=== PATIENT | male | born 1945 | race Caucasian/White ===

== ENCOUNTER 2016-09-03 20:50 | Outpatient (CLI) | payer MEDICARE, MEDICAID | END 2016-09-03 20:51 | disposition critical access hospital (66) | LOC: EMS 20:50 | PROVIDERS: ATTEND Surgery | DX: R51 Headache (principal); M54.9 Dorsalgia, unspecified; M54.2 Cervicalgia; M25.522 Pain in left elbow; W18.39XA Other fall on same level, initial encounter; Y93.01 Activity, walking, marching and hiking; Y92.009 Unspecified place in unspecified non-institutional (private) residence as the place of occurrence of the external cause | CPT/HCPCS: A0425; A0429 ==

== ENCOUNTER 2016-09-03 20:59 | Emergency (ER) | payer MEDICARE, MEDICAID ==
[2016-09-03] MEDS ORDERED: TETANUS/DIPHTHERIA/PERTUSSIS 0.5 ML SYRINGE IM ONE ×2 (21:15→21:32)
--- NOTE | 2016-09-03 21:18 | ED Physician Documentation ---
PD HPI HEAD INJURY - Stated complaint Stated Complaint: GLF/HEAD/C-SPINE INJ - Chief complaint Chief Complaint: Trauma Hd/Nk - History obtained from History obtained from: Patient, EMS - History of Present Illness Mechanism of head injury: Other (71-year-old gentleman with history of stroke was on his patio and fell. He is really unable to describe why or how he fell, but he denies any syncope. He hit his head and was unable to get himself up off the ground and crawled into the house sustaining numerous scrapes and abrasions on the concrete from crawling. His main complaint is upper back pain. Tetanus is unknown. He denies loss of consciousness.) Review of Systems Ten Systems: 10 systems reviewed and negative Constitutional: denies: Fever, Chills Eyes: denies: Loss of vision, Decreased vision Cardiac: denies: Chest pain / pressure, Palpitations Respiratory: denies: Dyspnea, Cough PD PAST MEDICAL HISTORY - Past Medical History Past Medical History: Yes Cardiovascular: Hypertension Respiratory: None Neuro: CVA Endocrine/Autoimmune: Type 2 diabetes GI: None : Nocturia HEENT: None Psych: None Musculoskeletal: None Derm: None - Past Surgical History Past Surgical History: Yes - Present Medications Home Medications: Ambulatory Orders Medication Instructions Recorded Confirmed Aspirin/Calcium Carbonate/Mag 325 mg PO DAILY 08/30/14 08/30/14 [Aspirin Buffered 325 mg Tab] FLUoxetine [PROzac] 10 mg PO DAILY 08/30/14 08/30/14 Lisinopril 10 mg PO DAILY 08/30/14 08/30/14 Metformin HCl 500 mg PO BID 08/30/14 08/30/14 [id number] [Cardizem] 90 mg PO DAILY 08/30/14 08/30/14 - Allergies Allergies/Adverse Reactions: Allergies Allergy/AdvReac Type Severity Reaction Status Date / Time No Known Drug Allergies Allergy Verified 08/30/14 10:08 - Social History Does the pt smoke?: No Smoking Status: Never smoker Does the pt drink ETOH?: Yes Does the pt have substance abuse?: No - Immunizations Immunizations are current?: No Immunizations: TDAP >10years/unknown - POLST Patient has POLST: No PD ED PE NORMAL - Vitals Vital signs reviewed: Yes - General General: Alert and oriented X 3, No acute distress - HEENT HEENT: PERRL, EOMI, Other (There is a 1 cm laceration over the right hoahaoism that is hemostatic on initial evaluation.) - Neck Neck: No bony TTP, Other (Given advanced age and potential distracting injury he was maintained in the c-collar pending imaging.) - Cardiac Cardiac: RRR, No murmur - Respiratory Respiratory: No respiratory distress, Clear bilaterally - Abdomen Abdomen: Non tender - Back Back: No CVA TTP, Other (Tender to the low thoracic spine, no lumbar spine tenderness.) - Extremities Extremities: Other (He has multiple abrasions, over the dorsum of the right hand , the medial side of the left hand, over the olecranon. None of these need suturing. There is also abrasion over the medial side of the ball of the right foot and toes. There is no bony tenderness of any extremity and he has full range of motion without pain of all major joints in all extremities.) - Neuro Neuro: Alert and oriented X 3, refund clerk 2-12 intact, No motor deficit, No sensory deficit, Normal speech - Psych Psych: Normal mood, Normal affect Results - Vitals Vitals: Vital Signs - 24 hr 09/03/16 09/03/16 21:00 22:29 Temperature 37 C 36.8 C Heart Rate 79 82 Respiratory 18 21 Rate Blood Pressure 152/95 H 152/81 H O2 Saturation 100 100 Oxygen O2 Source Room air - Labs Labs: Laboratory Tests 09/03/16 09/03/16 09/03/16 21:20 21:20 21:20 WBC 9.6 RBC 5.01 Hgb 15.2 Hct 45.8 MCV 91.5 MCH 30.4 MCHC 33.3 RDW 13.0 Plt Count 193 MPV 9.4 Neut # 7.3 H Lymph # 1.4 L [place] # 0.8 Eos # 0.1 Baso # 0.0 Absolute Nucleated RBC 0.00 Nucleated RBCs 0.0 PT 12.5 INR 1.1 Sodium 140 Potassium 3.9 Chloride 105 Carbon Dioxide 25 Anion Gap 10.0 BUN 25 H Creatinine 1.2 Estimated GFR (MDRD) 60 L Glucose 108 H Calcium 9.4 Total Bilirubin 1.0 AST 15 ALT 11 Alkaline Phosphatase 56 Total Protein 7.6 Albumin 4.4 Globulin 3.2 Albumin/Globulin Ratio 1.4 Lipase 34 - Rads (name of study) Ct Head, C spine and T spine Radiology: EMP read contemporaneously (NAD) Procedures - Laceration (location) R hoahaoism Length in cm: 1 Wound type: Linear, Superficial Wound Preparation: Irrigated copiously NS Skin layer closure: Dermabond Other: Tetanus booster given Complexity: Simple PD MEDICAL DECISION MAKING - ED course ED course: 71yo male after mechanical GLF with multiple abrasions. He has a temporal laceration which was dermabonded. Imaging without significant injury. Pt reuqested dischg. Able to ambulate with walker- that is his baseline. Departure - Departure Disposition: Home, Self Care Clinical Impression: Fall Qualifiers: Encounter type: initial encounter Qualified Code(s): W19.XXXA - Unspecified fall, initial encounter Injury of head and neck Qualifiers: Encounter type: initial encounter Qualified Code(s): S09.90XA - Unspecified injury of head, initial encounter Injury of back Qualifiers: Encounter type: initial encounter Qualified Code(s): S39.92XA - Unspecified injury of lower back, initial encounter Facial laceration Qualifiers: Encounter type: initial encounter Qualified Code(s): S01.81XA - Laceration without foreign body of other part of head, initial encounter Condition: Stable Record reviewed to determine appropriate education?: Yes Instructions: ED Contusion Back, ED Head Injury Closed Comments: You can wash your wounds briefly with soap and water, then keep them dry and covered with a Band-Aid. Follow-up with your doctor in 3 days for wound check. Return if worse. Your blood pressure was elevated today on check into the emergency department. This does not mean that you have hypertension, it is a common phenomenon to come to the emergency department and have elevated blood pressure. I recommend that she see her primary care physician within the week to have it rechecked when you are feeling better. Discharge Date/Time: 09/04/16 00:38
[2016-09-03 21:36] LABS: BASOPHILS % (AUTO) 0.5 %; EOSINOPHILS # (AUTO) 0.1 10^3/uL (0.0-0.7); EOSINOPHILS % (AUTO) 1.5 %; HCT - HEMATOCRIT 45.8 % (42.0-52.0); HGB - HEMOGLOBIN 15.2 g/dL (14.0-18.0); LYMPHOCYTES # (AUTO) 1.4 10^3/uL (1.5-3.5); LYMPHOCYTES % (AUTO) 14.8 %; MEAN CORPUSCULAR HEMOGLOBIN 30.4 pg (27.0-31.0); MEAN CORPUSCULAR HGB CONC 33.3 g/dL (32.0-36.0); MEAN CORPUSCULAR VOLUME 91.5 fL (80.0-94.0); MEAN PLATELET VOLUME 9.4 fL (7.4-11.4); MONOCYTES # (AUTO) 0.8 10^3/uL (0.0-1.0); MONOCYTES % (AUTO) 7.8 %; NEUTROPHILS # (AUTO) 7.3 10^3/uL (1.5-6.6); NEUTROPHILS % (AUTO) 75.4 %; RED BLOOD COUNT 5.01 10^6/uL (4.70-6.10); UNCORRECTED WHITE BLOOD COUNT 9.6 x10^3/uL; WHITE BLOOD COUNT 9.6 x10^3/uL (4.8-10.8)
[2016-09-03 21:43] LABS: ALBUMIN/GLOBULIN RATIO 1.4 (1.0-2.2); CALCIUM 9.4 mg/dL (8.5-10.3); CREATININE 1.2 mg/dL (0.6-1.2); POTASSIUM 3.9 mmol/L (3.5-5.0); TOTAL PROTEIN 7.6 g/dL (6.7-8.2)
[2016-09-03 21:48] LABS: INR 1.1 (0.8-1.2); PT - PROTHROMBIN TIME 12.5 secs (9.9-12.6)
--- NOTE | 2016-09-03 22:24 | CT Preliminary Report ---
Exam: CT Head W/O IMPRESSION: Multiple old lacunar infarcts. No acute intracranial process identified. [facility] SITE ID: [id number]
--- NOTE | 2016-09-03 22:27 | CT Report ---
EXAM: CT HEAD EXAM DATE: 09/03/2016 10:02 PM. CLINICAL HISTORY: Fall with head injury COMPARISON: MR brain 08/31/2014, head CT 08/30/2014. TECHNIQUE: Multiaxial CT images were obtained from the foramen magnum to the vertex. IV contrast: Non e. Reformats: Coronal. In accordance with CT protocol optimization, one or more of the following dose reduction techniques w ere utilized for this exam: automated exposure control, adjustment of mA and/or KV based on patient s ize, or use of iterative reconstructive technique. FINDINGS: Multiple old lacunar infarcts are present within the thalami, basal ganglia and teddy. No space-occupying lesion, hemorrhage, extracerebral fluid collection or hydrocephalus. No CT evidenc e of recent cortical infarct. Skull base and bone windows are unremarkable. IMPRESSION: Multiple old lacunar infarcts. No acute intracranial process identified. [facility] Referring Provider Line: [phone] SITE ID: [id number]
--- NOTE | 2016-09-03 22:28 | CT Preliminary Report ---
Exam: CT Cervical Spine W/O IMPRESSION: Stable degenerative changes since 08/30/2014. No fracture is identified. [facility] SITE ID: [id number]
[2016-09-03 22:30] VITALS: BP 152/81
--- NOTE | 2016-09-03 22:30 | CT Preliminary Report ---
Exam: CT Thoracic Spine W/O IMPRESSION: No fracture is identified in the thoracic spine. [facility] SITE ID: [id number]
--- NOTE | 2016-09-03 22:30 | CT Report ---
EXAM: CT CERVICAL SPINE WITHOUT CONTRAST DATE: 09/03/2016 10:02 PM HISTORY: Fall with head injury COMPARISONS: 08/30/2014. TECHNIQUE: Thin-section axial images were acquired of the cervical spine without contrast. Post-proce ssing: Coronal and sagittal reformats. Other: None. In accordance with CT protocol optimization, one or more of the following dose reduction techniques w ere utilized for this exam: automated exposure control, adjustment of mA and/or KV based on patient s ize, or use of iterative reconstructive technique. FINDINGS: Alignment: Slight retrolisthesis at C3-C4, unchanged. Bones: No fracture or bone lesion. Interspace Levels/Facets: Stable degenerative changes in the cervical spine. Disk space narrowing is most pronounced at C3-C4 a nd C6-C7. This is unchanged. Musculature: Normal. No fatty atrophy. Other: The paravertebral and prevertebral soft tissues are normal. The lung apices are clear. IMPRESSION: Stable degenerative changes since 08/30/2014. No fracture is identified. [facility] Referring Provider Line: [phone] SITE ID: [id number]
--- NOTE | 2016-09-03 22:33 | CT Report ---
EXAM: CT THORACIC SPINE WITHOUT CONTRAST EXAM DATE: 09/03/2016 10:02 PM. CLINICAL HISTORY: Pain after trauma. Fall. COMPARISONS: None. TECHNIQUE: Thin-section axial images were acquired of the thoracic spine from C7 to L1 without contra st. Post-processing: Coronal and sagittal reformats. Other: None. In accordance with CT protocol optimization, one or more of the following dose reduction techniques w ere utilized for this exam: automated exposure control, adjustment of mA and/or KV based on patient s ize, or use of iterative reconstructive technique. FINDINGS: Alignment: Normal. No scoliosis or spondylolisthesis. Bones: No fracture or bone lesion. Disk Levels/Facets: Mild multilevel degenerative disk and facet changes in the thoracic spine without significant appeari ng central canal or foraminal narrowing area Musculature: Normal. No fatty atrophy. Other: The visualized lungs, mediastinum, and abdominal cavity are unremarkable. IMPRESSION: No fracture is identified in the thoracic spine. [facility] Referring Provider Line: [phone] SITE ID: [id number]
== END 2016-09-04 00:38 | disposition home or self-care (01) ==
LOC: EDUNIT# → ED 20:59
DX: S09.90XA Unspecified injury of head, initial encounter (principal); S39.92XA Unspecified injury of lower back, initial encounter; S01.01XA Laceration without foreign body of scalp, initial encounter; W18.30XA Fall on same level, unspecified, initial encounter; Y92.007 Garden or yard of unspecified non-institutional (private) residence as the place of occurrence of the external cause; I10 Essential (primary) hypertension; E11.8 Type 2 diabetes mellitus with unspecified complications; Z23 Encounter for immunization; Z79.84 Long term (current) use of oral hypoglycemic drugs; Z79.82 Long term (current) use of aspirin; Z86.73 Personal history of transient ischemic attack (TIA), and cerebral infarction without residual deficits
CPT/HCPCS: 12011; 36415; 70450; 72125; 72128; 80053; 83690; 85025; 85610; 90471; 99284

== ENCOUNTER 2016-09-15 11:45 | Outpatient (CLI) | payer MEDICARE, MEDICAID | END 2016-09-15 11:46 | disposition home or self-care (01) | LOC: LAB.R 11:45 | PROVIDERS: ATTEND Podiatrist | DX: L03.115 Cellulitis of right lower limb (principal) | CPT/HCPCS: 87070; 87077; 87205 ==

== ENCOUNTER 2016-10-13 06:35 | Outpatient (CLI) | payer MEDICARE, MEDICAID | END 2016-10-13 06:36 | disposition EMS.NT | LOC: EMS 06:35 | PROVIDERS: ATTEND Surgery | DX: Z03.89 Encounter for observation for other suspected diseases and conditions ruled out (principal) ==

== ENCOUNTER 2018-01-11 07:42 | Outpatient (CLI) | payer MEDICARE, MEDICAID | END 2018-01-11 07:43 | disposition EMS.NT | LOC: EMS 07:42 | PROVIDERS: ATTEND Surgery | DX: Z03.89 Encounter for observation for other suspected diseases and conditions ruled out (principal) ==

== ENCOUNTER 2018-03-02 06:50 | Outpatient (CLI) | payer MEDICARE, MEDICAID | END 2018-03-02 06:51 | disposition critical access hospital (66) | LOC: EMS 06:50 | PROVIDERS: ATTEND Surgery | DX: S51.812A Laceration without foreign body of left forearm, initial encounter (principal); W01.190A Fall on same level from slipping, tripping and stumbling with subsequent striking against furniture, initial encounter; Y93.89 Activity, other specified; Y92.009 Unspecified place in unspecified non-institutional (private) residence as the place of occurrence of the external cause | CPT/HCPCS: A0425; A0429 ==

== ENCOUNTER 2018-03-02 07:09 | Emergency (ER) | payer MEDICARE, MEDICAID ==
--- NOTE | 2018-03-02 07:34 | ED Physician Documentation ---
History of Present Illness - Stated complaint Stated Complaint: GLF - Chief complaint Chief Complaint: Wound - Additonal information Additional information: hx from EMS and pt 73 male per EMR hx CVA and DM he states he takes 5 medictions he gets from [facility] prescribed by Dr Mcmanus but he does not know what they are - in any case he does not think he takes asa plavix coumadin xarelto or pradaxa lives alone no local family per EMS in need of social series - house was in terrible shape and pt unable to care for himself pt states he lost his balance while reaching for his walker and fell tearing the skin of his R forearm on the night stand he did not hit his head 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 no hip or LE injury but he was unable to get back up and was on the floor for a long while before he could crawl to his lifeline and call for help EMS found him naked covered in blood and dirt from his floor pt denies recent illness fever cough NVD or urinary sx addendum after call to PMD Pmhx TIA CVA with residual L sided weakness and speech hesiatncy, HTN DM HLD falls Meds: include plavix and fomax among others Review of Systems Constitutional: denies: Fever Ears: denies: Drainage/discharge Nose: denies: Epistaxis Cardiac: denies: Chest pain / pressure Respiratory: denies: Dyspnea, Cough GI: denies: Abdominal Pain, Nausea, Vomiting : denies: Dysuria Skin: reports: Other (skin tear L forearm) Musculoskeletal: denies: Neck pain, Extremity pain, Joint pain Neurologic: denies: Headache, Head injury Endocrine: denies: Easy bruising / bleeding Immunocompromised: denies: Immunocompromised PD PAST MEDICAL HISTORY - Past Medical History Cardiovascular: Hypertension Respiratory: None Neuro: CVA Endocrine/Autoimmune: Type 2 diabetes GI: None : Nocturia HEENT: None Psych: None Musculoskeletal: None Derm: None - Past Surgical History Past Surgical History: Yes - Present Medications Home Medications: Ambulatory Orders Medication Instructions Recorded Confirmed Aspirin/Calcium Carbonate/Mag 325 mg PO DAILY 08/30/14 08/30/14 [Aspirin Buffered 325 mg Tab] FLUoxetine [PROzac] 10 mg PO DAILY 08/30/14 08/30/14 Lisinopril 10 mg PO DAILY 08/30/14 08/30/14 Metformin HCl 500 mg PO BID 08/30/14 08/30/14 [id number] [Cardizem] 90 mg PO DAILY 08/30/14 08/30/14 - Allergies Allergies/Adverse Reactions: Allergies Allergy/AdvReac Type Severity Reaction Status Date / Time No Known Drug Allergies Allergy Verified 03/02/18 07:20 - Social History Does the pt smoke?: No Smoking Status: Never smoker Does the pt drink ETOH?: Yes Does the pt have substance abuse?: No - Immunizations Immunizations are current?: No Immunizations: TDAP >10years/unknown - POLST Patient has POLST: No PD ED PE NORMAL - Vitals Vital signs reviewed: Yes - General General: Alert and oriented X 3 - HEENT HEENT: Atraumatic, PERRL - Neck Neck: No bony TTP - Cardiac Cardiac: RRR - Respiratory Respiratory: No respiratory distress, Clear bilaterally - Abdomen Abdomen: Soft, Non tender - Derm Derm: Normal color, Other (large skin tear to L forearm) - Extremities Extremities: No deformity - Neuro Neuro: Alert and oriented X 3, checker cashier 2-12 intact, No sensory deficit, Normal speech. No: No motor deficit (diff to raise RLE from bed - he states this is baseline since his prior stroke (and PMD verifies this )) Results - Vitals Vitals: Vital Signs - 24 hr 03/02/18 03/02/18 03/02/18 07:15 09:30 12:00 Temperature 36.6 C Heart Rate 85 72 64 Respiratory 16 20 Rate Blood Pressure 115/68 122/72 119/64 O2 Saturation 100 100 100 03/02/18 03/02/18 13:54 15:38 Temperature 36.0 C L Heart Rate 86 71 Respiratory 20 18 Rate Blood Pressure 129/86 H 137/86 H O2 Saturation 98 100 Oxygen O2 Source Room air - Labs Labs: Laboratory Tests 03/02/18 03/02/18 03/02/18 07:43 07:43 07:43 WBC 12.7 H RBC 4.23 L Hgb 12.1 L Hct 36.8 L MCV 86.8 MCH 28.6 MCHC 33.0 RDW 15.8 H Plt Count 248 MPV 8.5 Neut # (Auto) 10.7 H Lymph # (Auto) 0.9 L [place] # (Auto) 0.9 Eos # (Auto) 0.1 Baso # (Auto) 0.1 Absolute Nucleated RBC 0.01 Nucleated RBC % 0.0 Sodium 135 Potassium 4.5 Chloride 103 Carbon Dioxide 25 Anion Gap 7.0 BUN 24 H Creatinine 1.3 H Estimated GFR (MDRD) 54 L Glucose 155 H Calcium 9.0 Total Creatine Kinase 456 H Troponin I < 0.04 Urine Color Urine Clarity Urine pH Ur Specific [place] Urine Protein Urine Glucose (UA) Urine Ketones Urine Occult Blood Urine Nitrite Urine Bilirubin Urine Urobilinogen Ur Leukocyte Esterase Ur Microscopic Review Urine Culture Comments Ethyl Alcohol < 5.0 03/02/18 11:55 WBC RBC Hgb Hct MCV MCH MCHC RDW Plt Count MPV Neut # (Auto) Lymph # (Auto) [place] # (Auto) Eos # (Auto) Baso # (Auto) Absolute Nucleated RBC Nucleated RBC % Sodium Potassium Chloride Carbon Dioxide Anion Gap BUN Creatinine Estimated GFR (MDRD) Glucose Calcium Total Creatine Kinase Troponin I Urine Color YELLOW Urine Clarity CLEAR Urine pH 6.0 Ur Specific [place] 1.010 Urine Protein NEGATIVE Urine Glucose (UA) NEGATIVE Urine Ketones NEGATIVE Urine Occult Blood NEGATIVE Urine Nitrite NEGATIVE Urine Bilirubin NEGATIVE Urine Urobilinogen 0.2 (NORMAL) Ur Leukocyte Esterase NEGATIVE Ur Microscopic Review NOT INDICATED Urine Culture Comments NOT INDICATED Ethyl Alcohol - Rads (name of study) CTH Radiology: See rad report (no acute) CTCS Radiology: See rad report (no acute) PD MEDICAL DECISION MAKING - ED course ED course: received records from PMD office turns out pt is on plavix so given falls and his sig weakness inablity to get up off the ground and possible new urinary retention got CTH and CS even though pt state he does not think he hurt his head CTH CS neg blood work notable for kild rhabdo txed with 2 L NS ptr unable to urinate per PMD take flomax had to place cath for urinary retention urine clean no indication for admit to hospital but sig concern about pt safety at home social work spent a very long time working with pt unable to place in SNF as he has [facility] insurance cannot have home health because he has not been house bound APS to check on living environment [facility] to assess for adult family home placement or other needs will dc with walker, lifeline, moe, mepital dressing to L forearm he sues paratransit and has assitrnace getting food etc he was able to ambulate on his own in the ER suing a walker I called PMD myself to schedule follow up - office state pt has a $300 ou tstanding bill but the agree to see him in follow up 11 Am Sunday which works for his paratransit schedule Departure - Departure Disposition: 01 Home, Self Care Clinical Impression: Skin tear, Weakness, Urinary retention Fall Qualifiers: Encounter type: initial encounter Qualified Code(s): W19.XXXA - Unspecified fall, initial encounter Condition: Good Instructions: ED Catheter Care Moe, ED Avulsion Dermal, ED Retention Urinary Male, ED Prevention Fall Follow-Up: [facility] [Provider Group] (Sunday at 11 AM. You have an outstanding bill at this office which needs to be addressed at this appointment as well.) Comments: I am very worried about your safety at home. The sr. social media & mobile manager has arranged for [facility] to assess the home and help out Please always wear your Lifeline so if you fall you can call for help without having to crawl to the button Please always use your walker to help prevent falls in the first place. The wound on your arm has been repaired with a dressing that can stay in place for 10 days - you may take off the overlying gauze but leave the very bottom layer on for 10 days. It is OK to shower with this. Your tetanus immunization has been updated Also you were not able to urinate in the ER and had over a liter of urine in your bladder. So a catheter has been placed. Please follow up with your PMD for further care - you may try having the catheter removed in about 5 days - but if you still cannot urinate you will need to have the catheter replaced and be referred to urology Discharge Date/Time: 03/02/18 15:50
[2018-03-02 07:50] LABS: BASOPHILS # (AUTO) 0.1 10^3/uL (0.0-0.1); BASOPHILS % (AUTO) 0.7 %; EOSINOPHILS # (AUTO) 0.1 10^3/uL (0.0-0.7); EOSINOPHILS % (AUTO) 1.2 %; HGB - HEMOGLOBIN 12.1 g/dL (14.0-18.0); LYMPHOCYTES # (AUTO) 0.9 10^3/uL (1.5-3.5); LYMPHOCYTES % (AUTO) 6.9 %; MEAN CORPUSCULAR HEMOGLOBIN 28.6 pg (27.0-31.0); MEAN CORPUSCULAR VOLUME 86.8 fL (80.0-94.0); MEAN PLATELET VOLUME 8.5 fL (7.4-11.4); MONOCYTES # (AUTO) 0.9 10^3/uL (0.0-1.0); MONOCYTES % (AUTO) 7.2 %; NEUTROPHILS # (AUTO) 10.7 10^3/uL (1.5-6.6); PLT - PLATELET COUNT 248 10^3/uL (130-450); RED BLOOD COUNT 4.23 10^6/uL (4.70-6.10); RED CELL DISTRIBUTION WIDTH 15.8 % (12.0-15.0); WHITE BLOOD COUNT 12.7 x10^3/uL (4.8-10.8)
[2018-03-02 08:06] LABS: BUN - BLOOD UREA NITROGEN 24 mg/dL (6-20); CARBON DIOXIDE - CO2 25 mmol/L (21-32); CHLORIDE 103 mmol/L (101-111); CK- CREATINE KINASE 456 IU/L (22-269); CREATININE 1.3 mg/dL (0.6-1.2); GFR - MDRD 54 (>89); GLUCOSE 155 mg/dL (70-100); SODIUM 135 mmol/L (135-145)
[2018-03-02] MEDS ORDERED: SODIUM CHLORIDE 0.9% 2,000 ML IV ONE (08:42)
[2018-03-02] MEDS ORDERED: LIDOCAINE 2% URO-JET 5 ML SYRINGE UR STA ×2 (10:52→11:43)
[2018-03-02 12:45] LABS: BILIRUBIN,URINE NEGATIVE (NEGATIVE); GLUCOSE, URINE (UA) NEGATIVE (NEGATIVE); KETONES,URINE (UA) NEGATIVE (NEGATIVE); LEUKOCYTE ESTERASE, URINE NEGATIVE (NEGATIVE); NITRITE,URINE NEGATIVE (NEGATIVE); OCCULT BLOOD,URINE NEGATIVE (NEGATIVE); PROTEIN,URINE NEGATIVE (NEGATIVE); UROBILINOGEN,URINE 0.2 (NORMAL) E.U./dL (NORMAL)
[2018-03-02 12:47] LABS: CLARITY,URINE CLEAR (CLEAR)
--- NOTE | 2018-03-02 13:55 | CT Report ---
Reason: fall on plavix weakness Procedure Date: 03/02/2018 Accession Number: [id number] / [id number] Procedure: CT - Head W/O CPT Code: FULL RESULT: EXAM: CT HEAD EXAM DATE: 03/02/2018 01:31 PM. CLINICAL HISTORY: Acute pain due to trauma. COMPARISON: HEAD W/O 03/02/2018 1:20 PM. TECHNIQUE: Multiaxial CT images were obtained from the foramen magnum to the vertex. Reformats: Sagittal and coronal. IV contrast: None. In accordance with CT protocol optimization, one or more of the following dose reduction techniques were utilized for this exam: automated exposure control, adjustment of mA and/or KV based on patient size, or use of iterative reconstructive technique. FINDINGS: Parenchyma: No intraparenchymal hemorrhage. No evidence of mass, midline shift, or CT findings of acute infarction. Covarrubias-white differentiation is distinct. Diffuse chronic microangiopathic white matter changes are evident. Extraaxial Spaces: Normal for age. No subdural or epidural collections identified. Ventricles: The ventricles and cortical sulci are enlarged, consistent with age-related tissue loss. Sinuses and orbits: Imaged paranasal sinuses, orbits, and mastoids show no significant abnormality. Bones: No evidence of fracture or calvarial defect. Other: None. IMPRESSION: Generalized age-related cortical atrophic changes without evidence of acute intracranial abnormality. [facility]
--- NOTE | 2018-03-02 13:57 | CT Report ---
Reason: fall Procedure Date: 03/02/2018 Accession Number: [id number] / [id number] Procedure: CT - Cervical Spine W/O CPT Code: FULL RESULT: EXAM: CT CERVICAL SPINE WITHOUT CONTRAST DATE: 03/02/2018 01:31 PM. HISTORY: Acute pain due to trauma. COMPARISONS: HEAD W/O 03/02/2018 1:20 PM. TECHNIQUE: Thin-section axial images were acquired of the cervical spine without contrast. Post-processing: Coronal and sagittal reformats. Other: None. In accordance with CT protocol optimization, one or more of the following dose reduction techniques were utilized for this exam: automated exposure control, adjustment of mA and/or KV based on patient size, or use of iterative reconstructive technique. FINDINGS: Alignment: No scoliosis or spondylolisthesis. Bones: No fracture or bone lesion. Interspace Levels/Facets: There is moderate diffuse degenerative disk and facet disease seen throughout the mid and lower aspects of the cervical spine. Musculature: No atrophy. Other: The paravertebral and prevertebral soft tissues are unremarkable. The lung apices are clear. IMPRESSION: No acute findings. Moderate degenerative changes seen. [facility]
[2018-03-02 15:38] VITALS: BP 137/86
== END 2018-03-02 15:50 | disposition home or self-care (01) ==
LOC: EDUNIT# → ED 07:09
DX: S51.812A Laceration without foreign body of left forearm, initial encounter (principal); R53.1 Weakness; R33.9 Retention of urine, unspecified; Z86.73 Personal history of transient ischemic attack (TIA), and cerebral infarction without residual deficits; M62.82 Rhabdomyolysis; W01.190A Fall on same level from slipping, tripping and stumbling with subsequent striking against furniture, initial encounter; Y93.89 Activity, other specified; Y92.009 Unspecified place in unspecified non-institutional (private) residence as the place of occurrence of the external cause; I10 Essential (primary) hypertension; E11.9 Type 2 diabetes mellitus without complications; I69.354 Hemiplegia and hemiparesis following cerebral infarction affecting left non-dominant side; I69.328 Other speech and language deficits following cerebral infarction; Z79.02 Long term (current) use of antithrombotics/antiplatelets; Z79.84 Long term (current) use of oral hypoglycemic drugs
CPT/HCPCS: 36415; 51702; 70450; 72125; 80048; 80320; 81001; 81003; 82550; 84484; 85025; 87086; 96360; 96361; 99284

== ENCOUNTER 2018-03-04 04:39 | Outpatient (CLI) | payer MEDICARE, MEDICAID | END 2018-03-04 04:40 | disposition critical access hospital (66) | LOC: EMS 04:39 | PROVIDERS: ATTEND Surgery | DX: Z48.00 Encounter for change or removal of nonsurgical wound dressing (principal) | CPT/HCPCS: A0425; A0429 ==

== ENCOUNTER 2018-03-04 04:59 | Observation (INO) | payer MEDICARE, MEDICAID ==
--- NOTE | 2018-03-04 05:04 | ED Physician Documentation ---
History of Present Illness - Stated complaint Stated Complaint: L ARM INJ - History obtained from History obtained from: Patient, EMS - History of Present Illness Timing: How many days ago (2) Improved by: nothing Worsened by: no exacerbating factors - Additonal information Additional information: T+R 2 days ago after he fell at home, sustained skin tear LUE. Also found to be in urinary retention and thus catheter placed. SW was consulted, as patient lives alone and, per medics, he is in very poor living conditions (clutter and garbage all through his house). Unfortunately, placement could not be found at that time. Patient called 911 this morning because he noticed blood from the LUE. Review of Systems Constitutional: denies: Fever, Chills, Sweats Cardiac: reports: Reviewed and negative Respiratory: reports: Reviewed and negative GI: reports: Reviewed and negative : denies: Wheeler Problem Musculoskeletal: reports: Reviewed and negative Neurologic: denies: Focal weakness, Numbness, Headache, Head injury PD PAST MEDICAL HISTORY - Past Medical History Cardiovascular: Hypertension Respiratory: None Neuro: CVA Endocrine/Autoimmune: Type 2 diabetes GI: None : Nocturia HEENT: None Psych: None Musculoskeletal: None Derm: None - Past Surgical History Past Surgical History: Yes - Present Medications Home Medications: Ambulatory Orders Medication Instructions Recorded Confirmed Aspirin/Calcium Carbonate/Mag 325 mg PO DAILY 08/30/14 08/30/14 [Aspirin Buffered 325 mg Tab] FLUoxetine [PROzac] 10 mg PO DAILY 08/30/14 08/30/14 Lisinopril 20 mg PO DAILY 08/30/14 08/30/14 Metformin HCl 500 mg PO BID 08/30/14 08/30/14 diltiaZEM [Cardizem] 90 mg PO DAILY 08/30/14 08/30/14 Atorvastatin Calcium 40 mg PO QPM 03/04/18 Clopidogrel [Plavix] 75 mg PO DAILY 03/04/18 Oxybutynin [Ditropan] 10 mg PO DAILY 03/04/18 - Allergies Allergies/Adverse Reactions: Allergies Allergy/AdvReac Type Severity Reaction Status Date / Time No Known Drug Allergies Allergy Verified 03/04/18 05:06 - Social History Does the pt smoke?: No Smoking Status: Never smoker Does the pt drink ETOH?: Yes Does the pt have substance abuse?: No - Immunizations Immunizations are current?: No Immunizations: TDAP >10years/unknown - POLST Patient has POLST: No PD ED PE NORMAL - Vitals Vital signs reviewed: Yes - General General: Alert and oriented X 3, No acute distress, Well developed/nourished, Other (poor hygiene, appears disheveled) - HEENT HEENT: PERRL, EOMI, Moist mucous membranes - Neck Neck: No bony TTP - Cardiac Cardiac: RRR - Respiratory Respiratory: No respiratory distress, Clear bilaterally - Abdomen Abdomen: Soft, Non tender - Extremities Extremities: No tenderness to palpate, Normal ROM s pain, No edema, Other (skin tear left FA without active bleeding (dressing taken down for direct visualization). skin tear left hand (dorsal aspect) without active bleeding. ) - Neuro Neuro: Alert and oriented X 3 PD ED PE EXPANDED - Cardiac Cardiac: Murmur Present (3/6 KANDY, greatest at cardiac base) Results - Vitals Vitals: Vital Signs - 24 hr 03/04/18 03/04/18 03/04/18 05:00 06:05 10:40 Temperature 37.2 C Heart Rate 85 67 Heart Rate [ 81 Supine] Respiratory 18 16 Rate Blood Pressure 150/82 H 120/64 Blood Pressure 116/63 [Supine] O2 Saturation 100 99 03/04/18 14:52 Temperature Heart Rate 96 Heart Rate [ Supine] Respiratory 20 Rate Blood Pressure 154/73 H Blood Pressure [Supine] O2 Saturation 99 Oxygen O2 Source Room air - Labs Labs: Microbiology 03/04/18 05:44 Urine Culture - Preliminary Urine,Catheterized CULTURE IN PROGRESS. RESULTS TO FOLLOW. Laboratory Tests 03/04/18 03/04/18 03/04/18 05:44 06:23 06:23 WBC 8.8 RBC 3.62 L Hgb 10.5 L Hct 32.6 L MCV 90.1 MCH 29.0 MCHC 32.2 RDW 16.2 H Plt Count 206 MPV 8.2 Neut # (Auto) 6.7 H Lymph # (Auto) 1.1 L [place] # (Auto) 0.7 Eos # (Auto) 0.2 Baso # (Auto) 0.1 Absolute Nucleated RBC 0.00 Nucleated RBC % 0.0 Sodium 137 Potassium 4.2 Chloride 106 Carbon Dioxide 23 Anion Gap 8.0 BUN 14 Creatinine 1.1 Estimated GFR (MDRD) 66 L Glucose 103 H Calcium 8.6 Total Creatine Kinase 346 H CK-MB (CK-2) Urine Color YELLOW Urine Clarity TURBID Urine pH 8.0 H Ur Specific [place] 1.015 Urine Protein 30 H Urine Glucose (UA) NEGATIVE Urine Ketones NEGATIVE Urine Occult Blood LARGE H Urine Nitrite POSITIVE H Urine Bilirubin NEGATIVE Urine Urobilinogen 0.2 (NORMAL) Ur Leukocyte Esterase TRACE H Urine RBC TNTC H Urine WBC 4-5 Ur Squamous Epith Cells RARE Squamous Urine Crystals >50 Triple Phos Urine Bacteria Rare Ur Microscopic Review INDICATED Urine Culture Comments INDICATED 03/04/18 06:23 WBC RBC Hgb Hct MCV MCH MCHC RDW Plt Count MPV Neut # (Auto) Lymph # (Auto) [place] # (Auto) Eos # (Auto) Baso # (Auto) Absolute Nucleated RBC Nucleated RBC % Sodium Potassium Chloride Carbon Dioxide Anion Gap BUN Creatinine Estimated GFR (MDRD) Glucose Calcium Total Creatine Kinase CK-MB (CK-2) 1.7 Urine Color Urine Clarity Urine pH Ur Specific [place] Urine Protein Urine Glucose (UA) Urine Ketones Urine Occult Blood Urine Nitrite Urine Bilirubin Urine Urobilinogen Ur Leukocyte Esterase Urine RBC Urine WBC Ur Squamous Epith Cells Urine Crystals Urine Bacteria Ur Microscopic Review Urine Culture Comments PD MEDICAL DECISION MAKING - ED course Complexity details: reviewed old records, reviewed results, re-evaluated patien t, considered differential, d/w patient ED course: There does not appear to be any new/fresh blood on this visit; he still has blood on his clothing, his watch, and his socks. He also has feces on his socks and pants, which he is aware of. Repeat blood work shows improvement in CPK level. UA reveals UTI and given keflex for this and will provide rx for same. Social work consulted to try again at placement. Case signed out to Dr. Rose pending consult. Departure - Departure Disposition: ED Place in Observation Clinical Impression: Skin tear Urinary tract infection Qualifiers: Urinary tract infection type: acute cystitis Hematuria presence: with hematuria Qualified Code(s): N30.01 - Acute cystitis with hematuria Condition: Good Discharge Date/Time: 03/04/18 17:20
[2018-03-04] MEDS ORDERED: BACITRACIN OINT TOP ONE (05:31)
[2018-03-04 06:13] LABS: BILIRUBIN,URINE NEGATIVE (NEGATIVE); GLUCOSE, URINE (UA) NEGATIVE (NEGATIVE); KETONES,URINE (UA) NEGATIVE (NEGATIVE); LEUKOCYTE ESTERASE, URINE TRACE (NEGATIVE); NITRITE,URINE POSITIVE (NEGATIVE); OCCULT BLOOD,URINE LARGE (NEGATIVE); PROTEIN,URINE 30 mg/dL (NEGATIVE); UROBILINOGEN,URINE 0.2 (NORMAL) E.U./dL (NORMAL)
[2018-03-04 06:23] LABS: BACTERIA,URINE Rare /HPF (None Seen); CLARITY,URINE TURBID (CLEAR); RBC,URINE TNTC /HPF (0-5); SQUAMOUS EPITHELIAL CELL,UR RARE Squamous (<= Few)
[2018-03-04 06:24] LABS: CRYSTALS,URINE >50 Triple Phos /LPF
[2018-03-04 06:30] LABS: BASOPHILS # (AUTO) 0.1 10^3/uL (0.0-0.1); BASOPHILS % (AUTO) 0.8 %; EOSINOPHILS # (AUTO) 0.2 10^3/uL (0.0-0.7); EOSINOPHILS % (AUTO) 2.6 %; HGB - HEMOGLOBIN 10.5 g/dL (14.0-18.0); LYMPHOCYTES # (AUTO) 1.1 10^3/uL (1.5-3.5); LYMPHOCYTES % (AUTO) 12.7 %; MEAN CORPUSCULAR HGB CONC 32.2 g/dL (32.0-36.0); MEAN CORPUSCULAR VOLUME 90.1 fL (80.0-94.0); MEAN PLATELET VOLUME 8.2 fL (7.4-11.4); MONOCYTES # (AUTO) 0.7 10^3/uL (0.0-1.0); MONOCYTES % (AUTO) 7.6 %; NEUTROPHILS # (AUTO) 6.7 10^3/uL (1.5-6.6); NEUTROPHILS % (AUTO) 76.3 %; PLT - PLATELET COUNT 206 10^3/uL (130-450); RED BLOOD COUNT 3.62 10^6/uL (4.70-6.10); RED CELL DISTRIBUTION WIDTH 16.2 % (12.0-15.0); WHITE BLOOD COUNT 8.8 x10^3/uL (4.8-10.8)
[2018-03-04 06:42] LABS: CALCIUM 8.6 mg/dL (8.5-10.3); CREATININE 1.1 mg/dL (0.6-1.2)
[2018-03-04] MEDS ORDERED: cephALEXin 250 MG CAPSULE PO STA ×2 (08:05→16:24)
--- NOTE | 2018-03-04 15:34 | ED Physician Documentation ---
ED Addendum - Addendum Addendum: 03/04/18 15:30 pt seen by PT OT and per their eval does not merit SNF for rehab SW - see her consult note - he was offered placement in SNF or respite and he declined both - when i ask why he states he does not want to live with other people he does not want to go home, his friend who has seen the home states it is uninhabitable at this time and he has hired 4 meseret crews to clean it up, and I also am severely concerned about his safety at home alone (as I was last visit ) per report his house is so dirty it is presently uninhabitable but he is declined the services that SW has offered today (SNF and respite) SW has arranged for home and community services as well as [facility] to go to his home tomorrow - apparently he sent them away in November but hopefully this time he will accept their help and he has paratransit booked for 11 AM tomorrow he does have friends here with him today in the ER - they want to support him but per SW they are not able to take him home with them either discharge is unsafe, pt not accepting SW rec for SNF or respite he is awake alert oriented and I feel able to make his own decisions though I think them poor decisiosn - does not have an active DPOE that I am aware of or that are documented in the chart (per EMR just has POA in case he is deemed incapable of decisions) - the man here with him says he is just a friend really no good solution here - pt is an unsafe dc, and is declining placement services at home will be available tomorrow per SW which will make dc safer he does have a UTI today - and he seems more confused than when i saw him 2 days ago - he he is weak with falls may merit observation for UTI weakness confusion and hopefully will be improved tomorrow and more importantly will have safer discharge situation spoke to hospitalist Dr Ramírez at [phone] in obs to tx UTI and optimize medical state and tomorrow when services are in place he should be able to dc home as he insists on doing 03/04/18 15:34 03/04/18 16:29 03/04/18 16:44 03/04/18 19:23
[2018-03-04] MEDS ORDERED: ONDANSETRON 4 MG/2 ML VIAL IVP PRN (16:38)
[2018-03-04] MEDS ORDERED: SODIUM CHLORIDE FLUSH 0.9% 10 ML SYRINGE IVP PRN (16:38)
[2018-03-04] MEDS ORDERED: ACETAMINOPHEN 325 MG TABLET PO PRN (16:38)
[2018-03-04] MEDS ORDERED: TEMAZEPAM 15 MG CAPSULE PO PRN (16:38)
[2018-03-04] MEDS ORDERED: SODIUM CHLORIDE FLUSH 0.9% 10 ML SYRINGE IVP SCH (17:00)
[2018-03-04] MEDS ORDERED: SODIUM CHLORIDE 0.9% 1,000 ML IV SCH (17:00)
--- NOTE | 2018-03-04 17:09 | HISTORY & PHYSICAL EXAMINATION ---
Chief Complaint - Chief Complaint Chief Complaint: weakness, UTI History of Present Illness - Admitted From Admitted From:: ED - History Obtained From Records Reviewed: yes History obtained from: chart review, patient Exam Limitations: AMS - History of Present Illness HPI Comment/Other: Yon Finn (Rich) is a 73-year old male with a past medical history of hypertension, hyperlipidemia, CAD, multiple CVA with left hemiparesis, history of PEG, nocturia, BPH, urinary retention, rhabdomyolysis, DM type 2, medical noncompliance, aspiration pneumonia, GERD, hiatal hernia, and depression. He presented to the ED after a fall in which he lacerated his left forearm which was bandaged and he was taken back home. He ended up re-bleeding from an additional suspected fall which led to another ED visit. This is now the 3rd visit to our ED and he has been diagnosed with an acute UTI based on a urinalysis. His home is reported to be covered in feces and very unkept, although per his report, he has regular house keepers come in who he found at the [facility]. He has had multiple falls with refusal to come to the ED as per chart review. On exam, he will not stay focused, cannot seem to answer direct questions, and talks about his wealth. He can answer all orientation questions, can state his medical conditions, but does not necessarily know the extent of his medical diagnoses. Labs show anemia with an H/H of 10.5/32.6, normal WBCs, a mildly elevated CK at 346 with no other lab abnormalities. Imaging of his head and cervical spine were completed and show no evidence of acute injuries. He denies chest pain, chest pressure, nausea, vomiting, diarrhea, rashes, headaches, shortness of breath or a productive cough, although states that he does suffer from a chronic cough. He speaks with a garbled voice and has a difficult time moving around in the bed. He has slight weakness to his LUE and LLE. Physical therapy did an evaluation in the ED and recommended to return to previous living with gericare aide teacher help. He will be admitted for treatment of this complicated UTI, given PO antibiotics and social work will assist in possible placement verses home with home services. History - Past Medical History Cardiovascular: reports: Congestive heart failure, Hypertension, High cholesterol, Peripheral Vascular Disease, CO, Murmur Respiratory: reports: Asthma, COPD, Pneumonia Neuro: reports: Dementia, CVA, Headaches, Tremors Endocrine/Autoimmune: reports: Type 2 diabetes GI: reports: GERD : reports: Benign prostate hypertrophy, Nocturia HEENT: reports: Chronic vision loss, Chronic sinusitis, Chronic hearing loss Psych: reports: Depression Musculoskeletal: reports: Osteoarthritis, Osteoporosis, Hemiplegia (left sided weakness) Derm: reports: None MRSA Hx?: No Other Past Medical History: Pt. had CVA, difficulty remembering when; states he has L leg, arm weakness but able to get up and move. - Family & Social History Family History: Mother: , Father: Living arrangement: At home Living Situation: Alone Social History Notes: The patient lives independently in [place]. He has a daughter and a step son. He raised the kids in [place]. He was in 1980, had a girlfriend after that and moved to [facility] in the early . 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 He states that he used cigarettes from age [age], and denies illicit drug use. He wishes to be a DNR with limited interventions. - Substance History Use: Uses substance without health or social issues: NONE Abuse: Recurrent use of substance despite neg consequences: NONE Dependence: Experiences withdrawal or developed tolerances: NONE - POLST Patient has POLST: No POLST Status: DNR Meds/Allgy - Home Medications Home Medications: Ambulatory Orders Medication Instructions Recorded Confirmed Aspirin/Calcium Carbonate/Mag 325 mg PO DAILY 08/30/14 08/30/14 [Aspirin Buffered 325 mg Tab] FLUoxetine [PROzac] 10 mg PO DAILY 08/30/14 08/30/14 Lisinopril 20 mg PO DAILY 08/30/14 08/30/14 Metformin HCl 500 mg PO BID 08/30/14 08/30/14 diltiaZEM [Cardizem] 90 mg PO DAILY 08/30/14 08/30/14 Atorvastatin Calcium 40 mg PO QPM 03/04/18 Clopidogrel [Plavix] 75 mg PO DAILY 03/04/18 Oxybutynin [Ditropan] 10 mg PO DAILY 03/04/18 - Allergies Allergies/Adverse Reactions: Allergies Allergy/AdvReac Type Severity Reaction Status Date / Time No Known Drug Allergies Allergy Verified 03/04/18 05:06 Review of Systems - Constitutional Constitutional: reports: Fatigue, Weakness, Poor appetite - Eyes Eyes: reports: Vision loss, Corrective lenses - Ears, Nose & Throat Ears, Nose & Throat: reports: Hearing loss, Postnasal drainage - Cardiovascular Cariovascular: reports: Exertional dyspnea, Decr. exercise tolerance - Respiratory Respiratory: reports: Cough, SOB at rest, SOB with exertion - Gastrointestinal Gastrointestinal: reports: Reflux/heartburn, Poor appetite - Genitourinary Genitourinary: reports: Dysuria, Urgency, Incontinence, Nocturia - Musculoskeletal Musculoskeletal: reports: Stiffness, Limited range of motion, Muscle weakness - Integumentary Integumentary: reports: Lesions, Dryness - Neurological Neurological: reports: General weakness, Memory problems, Pre-existing deficit, Abnormal gait - Psychiatric Psychiatric: reports: Depression - Hematologic/Lymphatic Hematologic/Lymphatic: reports: Recurrent infections - All Other Systems All Other Systems: reports: Reviewed and negative Prior Level of Functionality: ambulates with a 4-wheeled walker Exam - Vital Signs Reviewed Vital Signs: Yes Vital Signs: Vital Signs x48h Pulse Pulse Resp BP BP Pulse Ox 03/04/18 14:52 96 20 154/73 H 99 03/04/18 10:40 81 116/63 - Physical Exam General Appearance: positive: No acute distress, Alert Eyes Bilateral: positive: PERRL ENT: positive: Pharynx nml, No signs of dehydration Neck: positive: Thyroid nml, No JVD, Trachea midline Respiratory: positive: Chest non-tender, No respiratory distress, Breath sounds nml Cardiovascular: positive: Regular rate & rhythm, No gallop, Systolic murmur Peripheral Pulses: positive: 1+ Abdomen: positive: Non-tender, Nml bowel sounds, Other (rounded, soft) Back: positive: Nml inspection Skin: positive: Color nml, No rash, Warm, Dry Extremities: positive: Non-tender, Full ROM, Pedal edema (BLEs-chronic) Neurologic/Psychiatric: positive: Oriented x3, CN's nml (2-12), Motor nml, Sensation nml, Depressed mood/affect Reflexes: Bicep (R): 3+, Bicep (L): 3+ Conclusion/Plan - Problem List (1) Complicated UTI (urinary tract infection) Conclusion/Plan: A urine sample was obtained with a culture pending. He has an indwelling moe that his new for him and pink urine can be seen. He denies any dysuria or a history of this. Plan: Oral meds to start in the AM. (2) Disorientation Conclusion/Plan: The patient is A & O x4 on exam, but as per ED report, he is not at his baseline mentation. He did have a very hard time focusing and was easily distracted upon admission. He has had a history of CVA that may also contribute to his short term memory and cognitive delay. Plan: Monitor for worsening. (3) Weakness Conclusion/Plan: The patient has bilateral knee bruising, and scattered bruising on his arms. He admits to more frequent falls. He was already evaluated in the ED. Plan: Continue nursing cares, await placement plans verses home with home care. (4) T2DM (type 2 diabetes mellitus) Conclusion/Plan: The patient admits to being diabetic for at least the past 5 years, although has known non-compliance issues, so it was likely un-diagnosed for several years prior to that. His admitting blood sugar was 103, and a Hemoglobin A1 C was ordered to be checked in the morning. He takes Metformin at home, that will be temporarily on hold for this short hospital stay. Plan: Low dose lantus, SSI and carb controlled diet. Qualifiers: Diabetes mellitus complication status: with circulatory complication Diabetes mellitus complication detail: with other circulatory complications (5) Noncompliance Conclusion/Plan: The patient has a long history of this which has likely led to his heart disease, diabetes and CVAs. He seems to understand his medical conditions and the importance of taking all of his prescribed medications. He refuses placement at this time and wants to exhaust all home care services first despite his frequent falls and progressive debility. Plan: Continue to encourage compliance. (6) Inadequate housing Conclusion/Plan: Reports of feces and overall un-cleanliness were made regarding the patient's living conditions. He admits to bowel and bladder incontinence that started after his last stroke in 2016. He also admits to some disorientation which may have led to some accidents on the floor. He states that he has regular house keepers, but this is not what the reports indicate. He is agreeable to accepting help with this and regular home care. Plan: Continue placement plans with home health cares. (7) Acute CVA (cerebrovascular accident) Conclusion/Plan: The patient consequently has left sided hemiparesis from his stroke that occurred in 2016. He states that he uses his 4-wheeled walker, but falls "every now and then". He has evidence of falls by multiple bruises covering his extremities. Soon after his stroke a PEG tube was placed for dysphagia, then removed. Plan: Continue to treat this acute illness, use walker. (8) Normocytic anemia Conclusion/Plan: In the ED the patient is found to have a normal MCV, but low H/H of 10.5/32.6. Plan: Monitor labs, continue work up. - Lab Results Lab results reviewed: Yes Hernesto Bones: 03/04/18 06:23 03/04/18 06:23 Core Measures - Anticipated LOS I expect patient to be DC'd or transferred within 96 hours.: Yes - DVT/VTE - Prophylaxis VTE/DVT Device ordered at admit?: Yes VTE/DVT Prophylaxis med ordered at admit?: Yes - Stroke - Rehab Assessment Rehab services assessment to be ordered?: No Not Ordered - Medical Reason: Not indicated (PT evaluation completed in the ED) - AMI - Statin at Admit Aspirin Prescribed on Admit: Yes
[2018-03-04] MEDS: FAMOTIDINE 20 MG TABLET PO SCH (20:26)
[2018-03-05 07:55] VITALS: BP 117/64
[2018-03-05] MEDS ORDERED: cephALEXin 250 MG CAPSULE PO SCH (08:00)
[2018-03-05] MEDS ORDERED: INSULIN ASPART 300 UNIT/3 ML PEN SUBQ SCH (08:30)
[2018-03-05 08:36] LABS: BASOPHILS # (AUTO) 0.1 10^3/uL (0.0-0.1); BASOPHILS % (AUTO) 0.5 %; EOSINOPHILS # (AUTO) 0.2 10^3/uL (0.0-0.7); EOSINOPHILS % (AUTO) 1.7 %; HGB - HEMOGLOBIN 10.6 g/dL (14.0-18.0); LYMPHOCYTES % (AUTO) 9.9 %; MEAN CORPUSCULAR HEMOGLOBIN 29.3 pg (27.0-31.0); MEAN CORPUSCULAR HGB CONC 33.8 g/dL (32.0-36.0); MEAN CORPUSCULAR VOLUME 86.6 fL (80.0-94.0); MEAN PLATELET VOLUME 8.4 fL (7.4-11.4); MONOCYTES # (AUTO) 0.5 10^3/uL (0.0-1.0); MONOCYTES % (AUTO) 5.1 %; NEUTROPHILS # (AUTO) 8.2 10^3/uL (1.5-6.6); NEUTROPHILS % (AUTO) 82.8 %; PLT - PLATELET COUNT 205 10^3/uL (130-450); RED BLOOD COUNT 3.61 10^6/uL (4.70-6.10); RED CELL DISTRIBUTION WIDTH 15.7 % (12.0-15.0)
[2018-03-05 08:42] LABS: ALBUMIN 3.4 g/dL (3.2-5.5); ALBUMIN/GLOBULIN RATIO 1.1 (1.0-2.2); ALKALINE PHOSPHATASE 44 IU/L (42-121); ALT ALANINE AMINOTRANSFERASE < 10 IU/L (10-60); AST ASPARTATE AMINOTRANSFERASE 12 IU/L (10-42); BILIRUBIN,TOTAL 1.1 mg/dL (0.2-1.0); BUN - BLOOD UREA NITROGEN 11 mg/dL (6-20); CALCIUM 8.7 mg/dL (8.5-10.3); CARBON DIOXIDE - CO2 26 mmol/L (21-32); CHLORIDE 103 mmol/L (101-111); CK- CREATINE KINASE 297 IU/L (22-269); CREATININE 1.1 mg/dL (0.6-1.2); GFR - MDRD 66 (>89); GLUCOSE 128 mg/dL (70-100); MAGNESIUM 1.8 mg/dL (1.7-2.8); SODIUM 136 mmol/L (135-145); TOTAL PROTEIN 6.6 g/dL (6.7-8.2)
[2018-03-05] MEDS ORDERED: ENOXAPARIN 40 MG/0.4 ML SYRINGE SUBQ SCH (09:00)
[2018-03-05] MEDS ORDERED: INSULIN GLARGINE 300 UNIT/3 ML PEN SUBQ SCH (09:00)
[2018-03-05] MEDS ORDERED: POLYETHYLENE GLYCOL 3350 17 GM PACKET PO SCH (09:00)
[2018-03-05 09:01] LABS: HB2 TOTAL 11.3 g/dL; HEMOGLOBIN A1C 0.39 g/dL; HEMOGLOBIN A1C % 5.3 % (4.6-6.2)
--- NOTE | 2018-03-05 10:24 | Discharge Plan ---
Discharge Plan Disposition: Home, Self Care Condition: Good Prescriptions: Ciprofloxacin HCl [Cipro] 500 mg PO BID #28 tablet Saccharomyces Boulardii [Florastor] 250 mg PO BID #60 capsule Diet: Regular Activity Restrictions: Activity as Tolerated Shower Restrictions: No Assistance Devices: Walker Weight Bearing: Full Weight Instruction Topics: ED Avulsion Dermal, ED UTI Cystitis Male Additional Instructions or Follow Up instructions: You were admitted for weakness and a complicated UTI. Please finish all of your prescribed antibiotics. Please see your PCP within one week. No Smoking: If you smoke, Please STOP! Call for help. Follow-up with: Marcus Mcmanus MD [Provider Admit Priv/Credential] -
--- NOTE | 2018-03-05 10:26 | DISCHARGE SUMMARY ---
Discharge Summary Admit Date: 03/04/18 Discharge Date: 03/05/18 Discharging Provider: ROSARIO Goddard Primary Care Provider: Marcus Mcmanus Code Status: Do Not Attempt Resuscitation Condition at Discharge: Good Discharge Disposition: 01 Home, Self Care - DIAGNOSES Admission Diagnoses: Urinary tract infection, site not specified (N39.0) Disorientation, unspecified (R41.0) Weakness (R53.1) Type 2 diabetes mellitus without complications (E11.9) Patient's noncompliance w oth medical treatment and regimen (Z91.19) Inadequate housing (Z59.1) Cerebral infarction, unspecified (I63.9) Anemia, unspecified (D64.9) Discharge Diagnoses with Status of Each Condition: UTI (urinary tract infection) (N39.0) acute, treatment to continue at home. Confusion (R41.0) improved, baseline dementia. Medical non-compliance (Z91.19) chronic, ongoing. Unsatisfactory living conditions (Z59.1) chronic, ongoing. Reports of a "window cleaner" that was going to be going over to the patient's home prior to discharge. Weakness (R53.1) chronic, ongoing. Diabetes mellitus type 2, controlled (E11.9) chronic, ongoing. Normocytic anemia (D64.9) chronic, ongoing. BPH (benign prostatic hyperplasia) (N40.0) chronic, ongoing. Urinary retention (R33.9) chronic, ongoing. Patient refused to leave the indwelling moe in place, so this was removed prior to discharge. Falls (W19.XXXA)chronic, ongoing. Hemiparesis affecting left side as late effect of cerebrovascular accident (I69.354)chronic, ongoing. - HPI History of Present Illness: Yon Finn (Rich) is a 73-year old male with a past medical history of h ypertension, hyperlipidemia, CAD, multiple CVA with left hemiparesis, history of PEG, nocturia, BPH, urinary retention, rhabdomyolysis, DM type 2, medical noncompliance, aspiration pneumonia, GERD, hiatal hernia, and depression. He presented to the ED after a fall in which he lacerated his left forearm which was bandaged and he was taken back home. He ended up re-bleeding from an additional suspected fall which led to another ED visit. This is now the 3rd visit to our ED and he has been diagnosed with an acute UTI based on a urinalysis. His home is reported to be covered in feces and very unkept, although per his report, he has regular house keepers come in who he [place] at [place] [employer]. He has had multiple falls with refusal to come to the ED as per chart review. On exam, he will not stay focused, cannot seem to answer direct questions, and talks about his wealth. He can answer all orientation questions, can state his medical conditions, but does not necessarily know the extent of his medical diagnoses. Labs show anemia with an H/H of 10.5/32.6, normal WBCs, a mildly elevated CK at 346 with no other lab abnormalities. Imaging of his head and cervical spine were completed and show no evidence of acute injuries. He denies chest pain, chest pressure, nausea, vomiting, d iarrhea, rashes, headaches, shortness of breath or a productive cough, although states that he does suffer from a chronic cough. He speaks with a garbled voice and has a difficult time moving around in the bed. He has slight weakness to his LUE and LLE. Physical therapy did an evaluation in the ED and recommended to return to previous living with health care marketing specialist help. He will be admitted for treatment of this complicated UTI, given PO antibiotics and social work will assist in possible placement verses home with home services. - HOSPITAL COURSE Hospital Course: The patient was observed overnight and nearly left AMA the next morning. He requested his moe be removed and was agreeable to taking oral antibiotics at home. He is to continue oral Cipro x14 days, which was sent to the pharmacy. Urine sensitivities showed this to be an effective treatment. He was medically stable and transported home via bus with his 4-wheeled walker. - ALLERGIES Allergies/Adverse Reactions: Allergies Allergy/AdvReac Type Severity Reaction Status Date / Time No Known Drug Allergies Allergy Verified 03/04/18 05:06 - MEDICATIONS Home Medications: Ambulatory Orders Medication Instructions Recorded Confirmed Aspirin/Calcium Carbonate/Mag 325 mg PO DAILY 08/30/14 03/05/18 [Aspirin Buffered 325 mg Tab] FLUoxetine [PROzac] 10 mg PO DAILY 08/30/14 03/05/18 Lisinopril 20 mg PO DAILY 08/30/14 03/05/18 Metformin HCl 500 mg PO BID 08/30/14 03/05/18 diltiaZEM [Cardizem] 90 mg PO DAILY 08/30/14 03/05/18 Atorvastatin Calcium 40 mg PO QPM 03/04/18 03/05/18 Clopidogrel [Plavix] 75 mg PO DAILY 03/04/18 03/05/18 Oxybutynin [Ditropan] 10 mg PO DAILY 03/04/18 03/05/18 Ciprofloxacin HCl [Cipro] 500 mg PO BID #28 tablet 03/05/18 Saccharomyces Boulardii [Florastor] 250 mg PO BID #60 capsule 03/05/18 - PHYSICAL EXAM AT DISCHARGE General Appearance: positive: Alert, Mild distress, Anxious Eyes Bilateral: positive: PERRL ENT: positive: Pharynx nml, No signs of dehydration Neck: positive: Thyroid nml, No JVD, Trachea midline Respiratory: positive: Chest non-tender, No respiratory distress, Rhonchi Cardiovascular: positive: Regular rate & rhythm, No gallop, Tachycardia, Systoli c murmur Peripheral Pulses: positive: 2+ Abdomen: positive: Non-tender, Nml bowel sounds Back: positive: Nml inspection Skin: positive: No rash, Warm, Dry, Other (scattered bruising, bilateral knee br uising) Extremities: positive: Non-tender, Pedal edema, Joint swelling Neurologic/Psychiatric: positive: Oriented x3, CN's nml (2-12), Motor nml, Sens ation nml, Depressed mood/affect Reflexes: Bicep (R): 3+, Bicep (L): 3+ - LABS Result Diagrams: 03/05/18 08:20 03/05/18 08:20 - DIAGNOSTIC IMAGING Diagnostic Imaging Results: Final report reviewed Diagnostic Imaging Results Comments: EXAM: CT CERVICAL SPINE WITHOUT CONTRAST DATE: 03/02/2018 01:31 PM IMPRESSION: No acute findings. Moderate degenerative changes seen. EXAM: CT HEAD EXAM DATE: 03/02/2018 01:31 PM IMPRESSION: Generalized age-related cortical atrophic changes without evidence of acute intracranial abnormality. - FOLLOW UP Follow Up: Disposition: Home, Self Care Prescriptions: Ciprofloxacin HCl [Cipro] 500 mg PO BID #28 tablet Saccharomyces Boulardii [Florastor] 250 mg PO BID #60 capsule Assistance Devices: Walker Additional Instructions or Follow Up instructions: You were admitted for weakness and a complicated UTI. Please finish all of your prescribed antibiotics. Please see your PCP within one week. - TIME SPENT Time Spent in Discharge (Minutes): 50
[2018-03-05] MEDS: FAMOTIDINE 20 MG TABLET PO SCH (10:34)
== END 2018-03-05 10:35 | disposition home or self-care (01) ==
LOC: EDUNIT# → EDBD → ED 04:59 → OBS 16:38 → MS2 17:28
PROVIDERS: ADMIT Nurse Practitioner; ATTEND Nurse Practitioner
DX: N30.01 Acute cystitis with hematuria (principal); R41.0 Disorientation, unspecified; R53.1 Weakness; Z91.19 Patient's noncompliance with other medical treatment and regimen; Z59.1 Inadequate housing; E11.51 Type 2 diabetes mellitus with diabetic peripheral angiopathy without gangrene; Z79.84 Long term (current) use of oral hypoglycemic drugs; D64.9 Anemia, unspecified; N40.1 Benign prostatic hyperplasia with lower urinary tract symptoms; R33.8 Other retention of urine; I69.354 Hemiplegia and hemiparesis following cerebral infarction affecting left non-dominant side; I11.0 Hypertensive heart disease with heart failure; I50.9 Heart failure, unspecified; E78.5 Hyperlipidemia, unspecified; I25.10 Atherosclerotic heart disease of native coronary artery without angina pectoris; Z91.81 History of falling; I25.2 Old myocardial infarction; F03.90 Unspecified dementia, unspecified severity, without behavioral disturbance, psychotic disturbance, mood disturbance, and anxiety; S80.02XA Contusion of left knee, initial encounter; S80.01XA Contusion of right knee, initial encounter; Z66 Do not resuscitate; K21.9 Gastro-esophageal reflux disease without esophagitis
CPT/HCPCS: 36415; 80048; 80053; 81001; 82550; 82553; 83036; 83735; 84443; 85025; 87077; 87086; 87181; 99284; A9270; G0378; 81003

== ENCOUNTER 2018-05-20 14:14 | Outpatient (CLI) | payer MEDICAID, MEDICARE ==
[2018-05-20 19:01] LABS: ALBUMIN 4.4 g/dL (3.2-5.5); ALBUMIN/GLOBULIN RATIO 1.5 (1.0-2.2); ALKALINE PHOSPHATASE 52 IU/L (42-121); ALT ALANINE AMINOTRANSFERASE 10 IU/L (10-60); AST ASPARTATE AMINOTRANSFERASE 11 IU/L (10-42); BILIRUBIN,TOTAL 1.4 mg/dL (0.2-1.0); BUN - BLOOD UREA NITROGEN 28 mg/dL (6-20); CALCIUM 9.5 mg/dL (8.5-10.3); CARBON DIOXIDE - CO2 20 mmol/L (21-32); CHLORIDE 103 mmol/L (101-111); CHOLESTEROL 127 mg/dL; CREATININE 1.6 mg/dL (0.6-1.2); GFR - MDRD 43 (>89); GLUCOSE 65 mg/dL (70-100); HDL CHOLESTEROL 43 mg/dL; LDL CHOLESTEROL,CALCULATED 65 mg/dL; LDL/HDL RATIO 1.5 (<3.6); SODIUM 136 mmol/L (135-145); TOTAL PROTEIN 7.4 g/dL (6.7-8.2); VLDL CHOLESTEROL 19 mg/dL
[2018-05-20 19:10] LABS: BASOPHILS # (AUTO) 0.1 10^3/uL (0.0-0.1); BASOPHILS % (AUTO) 0.8 %; EOSINOPHILS # (AUTO) 0.2 10^3/uL (0.0-0.7); EOSINOPHILS % (AUTO) 2.5 %; HGB - HEMOGLOBIN 11.2 g/dL (14.0-18.0); LYMPHOCYTES # (AUTO) 1.2 10^3/uL (1.5-3.5); LYMPHOCYTES % (AUTO) 15.6 %; MEAN CORPUSCULAR HEMOGLOBIN 24.9 pg (27.0-31.0); MEAN CORPUSCULAR HGB CONC 31.9 g/dL (32.0-36.0); MEAN CORPUSCULAR VOLUME 78.2 fL (80.0-94.0); MEAN PLATELET VOLUME 9.5 fL (7.4-11.4); MONOCYTES # (AUTO) 0.5 10^3/uL (0.0-1.0); NEUTROPHILS # (AUTO) 5.6 10^3/uL (1.5-6.6); NEUTROPHILS % (AUTO) 74.1 %; PLT - PLATELET COUNT 185 10^3/uL (130-450); RED CELL DISTRIBUTION WIDTH 15.9 % (12.0-15.0); WHITE BLOOD COUNT 7.6 x10^3/uL (4.8-10.8)
[2018-05-20 19:15] LABS: HB2 TOTAL 11.9 g/dL; HEMOGLOBIN A1C 0.44 g/dL; HEMOGLOBIN A1C % 5.5 % (4.6-6.2)
== END 2018-05-20 23:59 | disposition home or self-care (01) ==
LOC: LAB.N 14:14
PROVIDERS: ATTEND Nurse Practitioner Gerontology
DX: I10 Essential (primary) hypertension (principal); E11.9 Type 2 diabetes mellitus without complications
CPT/HCPCS: 36415; 80053; 80061; 83036; 83721; 85025

== ENCOUNTER 2018-08-02 08:00 | Outpatient (CLI) | payer MEDICARE | END 2018-08-02 23:59 | disposition home or self-care (01) | LOC: LAB.N 08:00 | PROVIDERS: ATTEND Nurse Practitioner Gerontology | DX: Z14.1 Cystic fibrosis carrier (principal) | CPT/HCPCS: 36415; 81220; 81599 ==

== ENCOUNTER 2018-11-15 10:55 | Outpatient (CLI) | payer MEDICARE, MEDICAID ==
[2018-11-15 13:23] LABS: CALCIUM 9.1 mg/dL (8.5-10.3); CREATININE 1.5 mg/dL (0.6-1.2)
[2018-11-15 13:49] LABS: HEMOGLOBIN A1C 0.54 g/dL; HEMOGLOBIN A1C % 6.3 % (4.6-6.2)
== END 2018-11-15 23:59 | disposition home or self-care (01) ==
LOC: LAB.N 10:55
PROVIDERS: ATTEND Nurse Practitioner Gerontology
DX: E11.9 Type 2 diabetes mellitus without complications (principal)
CPT/HCPCS: 36415; 80048; 83036

== ENCOUNTER 2019-04-15 13:38 | Outpatient (CLI) | payer MEDICARE, MEDICAID ==
[2019-04-15 19:03] LABS: HB2 TOTAL 12.1 g/dL; HEMOGLOBIN A1C 0.55 g/dL; HEMOGLOBIN A1C % 6.3 % (4.6-6.2)
== END 2019-04-15 23:59 | disposition home or self-care (01) ==
LOC: LAB.N 13:38
PROVIDERS: ATTEND Nurse Practitioner Gerontology
DX: E11.9 Type 2 diabetes mellitus without complications (principal)
CPT/HCPCS: 36415; 83036

== ENCOUNTER 2020-01-12 13:24 | Outpatient (CLI) | payer MEDICARE, MEDICAID | END 2020-01-12 13:25 | disposition EMS.NT | LOC: EMS 13:24 | PROVIDERS: ATTEND Surgery | DX: S51.011A Laceration without foreign body of right elbow, initial encounter (principal); W08.XXXA Fall from other furniture, initial encounter ==

== ENCOUNTER 2020-02-26 13:55 | Outpatient (CLI) | payer MEDICARE, MEDICAID ==
[2020-02-26 18:45] LABS: BASOPHILS # (AUTO) 0.1 10^3/uL (0.0-0.1); BASOPHILS % (AUTO) 0.6 %; EOSINOPHILS # (AUTO) 0.3 10^3/uL (0.0-0.7); EOSINOPHILS % (AUTO) 3.8 %; HGB - HEMOGLOBIN 12.4 g/dL (14.0-18.0); LYMPHOCYTES # (AUTO) 1.4 10^3/uL (1.5-3.5); LYMPHOCYTES % (AUTO) 15.4 %; MEAN CORPUSCULAR HEMOGLOBIN 22.9 pg (27.0-31.0); MEAN CORPUSCULAR HGB CONC 29.2 g/dL (32.0-36.0); MEAN CORPUSCULAR VOLUME 78.4 fL (80.0-94.0); MEAN PLATELET VOLUME 11.4 fL (7.4-11.4); MONOCYTES # (AUTO) 0.7 10^3/uL (0.0-1.0); MONOCYTES % (AUTO) 7.4 %; NEUTROPHILS # (AUTO) 6.5 10^3/uL (1.5-6.6); NEUTROPHILS % (AUTO) 72.4 %; PLT - PLATELET COUNT 254 10^3/uL (130-450); RED BLOOD COUNT 5.41 10^6/uL (4.70-6.10); RED CELL DISTRIBUTION WIDTH 17.1 % (12.0-15.0); WHITE BLOOD COUNT 8.9 x10^3/uL (4.8-10.8)
[2020-02-26 19:13] LABS: ALBUMIN 4.4 g/dL (3.2-5.5); ALBUMIN/GLOBULIN RATIO 1.5 (1.0-2.2); ALKALINE PHOSPHATASE 58 IU/L (42-121); ALT ALANINE AMINOTRANSFERASE 10 IU/L (10-60); AST ASPARTATE AMINOTRANSFERASE 10 IU/L (10-42); BILIRUBIN,TOTAL 0.8 mg/dL (0.2-1.0); BUN - BLOOD UREA NITROGEN 34 mg/dL (6-20); CALCIUM 9.6 mg/dL (8.5-10.3); CARBON DIOXIDE - CO2 22 mmol/L (21-32); CHLORIDE 109 mmol/L (101-111); CHOLESTEROL 103 mg/dL; CREATININE 1.9 mg/dL (0.6-1.2); GLUCOSE 127 mg/dL (70-100); HDL CHOLESTEROL 34 mg/dL; LDL CHOLESTEROL,CALCULATED 42 mg/dL; LDL/HDL RATIO 1.2 (<3.6); SODIUM 140 mmol/L (135-145); TOTAL PROTEIN 7.4 g/dL (6.7-8.2); VLDL CHOLESTEROL 27 mg/dL
[2020-02-26 19:20] LABS: CREATININE,URINE 194.3 mg/dL; MICROALBUM/CREATININE RATIO,UR 4.1 ug/mg (<30.0); MICROALBUMIN,URINE 0.8 mg/dL (0-300.0)
[2020-02-26 19:26] LABS: HEMOGLOBIN A1c% 6.4 % (4.27-6.07)
== END 2020-02-26 23:59 | disposition home or self-care (01) ==
LOC: LAB.WCP 13:55
PROVIDERS: ATTEND Internal Medicine
DX: E11.9 Type 2 diabetes mellitus without complications (principal)
CPT/HCPCS: 36415; 80053; 80061; 82043; 82570; 83036; 83721; 84443; 85025

== ENCOUNTER 2020-12-27 11:18 | Outpatient (CLI) | payer MEDICARE, MEDICAID | END 2020-12-27 11:19 | disposition short-term general hospital (02) | LOC: EMS 11:18 | DX: R53.81 Other malaise (principal); I48.91 Unspecified atrial fibrillation | CPT/HCPCS: A0425; A0427 ==

== ENCOUNTER 2021-01-19 13:01 | Outpatient (CLI) | payer MEDICARE, MEDICAID | END 2021-01-19 13:02 | disposition critical access hospital (66) | LOC: EMS 13:01 | DX: R06.02 Shortness of breath (principal) ==

== ENCOUNTER 2021-01-19 13:04 | Emergency (ER) | payer MEDICARE, MEDICAID ==
--- NOTE | 2021-01-19 14:04 | ED Physician Documentation ---
History of Present Illness - Stated complaint Stated Complaint: SOA - Chief complaint Chief Complaint: Cardiac - History obtained from History obtained from: Patient, EMS - History of Present Illness Pain level max: 0 Pain level now: 0 - Additonal information Additional information: Patient is a 75-year-old male sent over from [facility] for difficulty breathing. Patient states that he will only be treated by [facility] in [place]. He refused transport to the emergency department and was brought here against as well by EMS. He refuses blood work here, refuses a chest x-ray. Patient states that he refuses all care and wants to be sent back to [facility] so they can send him directly to [facility] in [place]. Patient states that he felt short of breath last night but is feeling better today. Denies any fevers. Review of Systems Unable to obtain: Uncooperative Constitutional: denies: Fever PD PAST MEDICAL HISTORY - Past Medical History Cardiovascular: Congestive heart failure, Hypertension, High cholesterol, Peripheral Vascular Disease, [place], Murmur Respiratory: Asthma, COPD, Pneumonia Neuro: Dementia, CVA, Headaches, Tremors Endocrine/Autoimmune: Type 2 diabetes GI: GERD : Benign prostate hypertrophy, Nocturia HEENT: Chronic vision loss, Chronic sinusitis, Chronic hearing loss Psych: Depression Musculoskeletal: Osteoarthritis, Osteoporosis, Hemiplegia (left sided weakness) Derm: None - Past Surgical History Past Surgical History: Yes - Present Medications Home Medications: Ambulatory Orders Medication Instructions Recorded Confirmed Aspirin/Calcium Carbonate/Mag 325 mg PO DAILY 08/30/14 03/05/18 [Aspirin Buffered 325 mg Tab] FLUoxetine [PROzac] 10 mg PO DAILY 08/30/14 03/05/18 Metformin HCl 500 mg PO BID 08/30/14 03/05/18 diltiaZEM [Cardizem] 90 mg PO DAILY 08/30/14 03/05/18 lisinopriL [Lisinopril] 20 mg PO DAILY 08/30/14 03/05/18 Atorvastatin Calcium 40 mg PO QPM 03/04/18 03/05/18 Clopidogrel [Plavix] 75 mg PO DAILY 03/04/18 03/05/18 Oxybutynin [Ditropan] 10 mg PO DAILY 03/04/18 03/05/18 Ciprofloxacin HCl [Cipro] 500 mg PO BID #28 tablet 03/05/18 Saccharomyces Boulardii [Florastor] 250 mg PO BID #60 capsule 03/05/18 - Allergies Allergies/Adverse Reactions: Allergies Allergy/AdvReac Type Severity Reaction Status Date / Time No Known Drug Allergies Allergy Verified 01/19/21 13:20 - Social History Does the pt smoke?: No Smoking Status: Never smoker Does the pt drink ETOH?: Yes Does the pt have substance abuse?: No - Immunizations Immunizations are current?: No Immunizations: TDAP >10years/unknown - POLST Patient has POLST: No POLST Status: DNR PD ED PE NORMAL - Vitals Vital signs reviewed: Yes - General General: Alert and oriented X 3, Well developed/nourished, Other (Mild tachypnea) - HEENT HEENT: Moist mucous membranes - Neck Neck: Supple, no meningeal sign - Cardiac Cardiac: RRR - Respiratory Respiratory: Clear bilaterally, Other (Mild tachypnea, no retractions) - Abdomen Abdomen: Soft, Non tender, Non distended - Derm Derm: Warm and dry - Extremities Extremities: Other (1+ bilateral pitting edema) - Neuro Neuro: Alert and oriented X 3 Results - Vitals Vitals: Vital Signs - 24 hr 01/19/21 01/19/21 01/19/21 13:10 13:52 16:24 Temperature 36.4 C L 36.8 C Heart Rate 81 78 17 L Respiratory 37 H 30 H 30 H Rate Blood Pressure 132/69 H 105/71 108/54 L O2 Saturation 100 100 100 Oxygen O2 Source Room air PD MEDICAL DECISION MAKING - ED course Complexity details: considered differential, d/w patient, d/w family ED course: Patient is adamant in his refusal of receiving any care here. He demands transfer to [facility] in [place]. I did contact [facility], they state they are not taking any ambulances from anybody right now. They state that they have no beds and that their emergency department is full. They refused the transfer. Patient refuses any care here. He states that he is fine if he dies while waiting for care at [facility]. He states understanding of this. I told him he is welcome to return at any time should he change his mind. He adamantly refuses to stay in this hospital and demands to go home to [facility]. Patient therefore will be transferred back to [facility] AGAINST MEDICAL ADVICE. This document was made in part using voice recognition software. While efforts are made to proofread this document, sound alike and grammatical errors may occur. Please note heart rate was 71 at the time of discharge, not 17. Departure - Departure Disposition: 07 Against Medical Advice Clinical Impression: Dyspnea Qualifiers: Dyspnea type: unspecified Qualified Code(s): R06.00 - Dyspnea, unspecified Condition: Stable Instructions: ED Dyspnea Shortness of Breath Follow-Up: Thuan Hayes MD [Primary Care Provider] - Tomorrow Comments: You have refused all care at this hospital. You have refused any care in the emergency department. As you have been informed, [facility] has no beds and they are not excepting any ambulances today. You are welcome to return should you change your mind about being cared for and treated at this hospital. Otherwise you will be returned to [facility]. You have left against medical advice Discharge Date/Time: 01/19/21 16:40
[2021-01-19 16:25] VITALS: BP 108/54
== END 2021-01-19 16:40 | disposition left against medical advice (07) ==
LOC: EDUNIT# → ED 13:04
DX: R06.82 Tachypnea, not elsewhere classified (principal); R60.0 Localized edema; Z53.29 Procedure and treatment not carried out because of patient's decision for other reasons; I10 Essential (primary) hypertension; E11.9 Type 2 diabetes mellitus without complications; Z79.84 Long term (current) use of oral hypoglycemic drugs; Z79.02 Long term (current) use of antithrombotics/antiplatelets; Z79.82 Long term (current) use of aspirin; Z66 Do not resuscitate
CPT/HCPCS: 80053; 83690; 83880; 85025; 99282; 99283

== ENCOUNTER 2021-01-19 16:40 | Outpatient (CLI) | payer MEDICARE, MEDICAID | END 2021-01-19 16:41 | disposition home or self-care (01) | LOC: EMS 16:40 | PROVIDERS: ATTEND Emergency Medicine | DX: R06.00 Dyspnea, unspecified (principal); R53.1 Weakness; Z74.01 Bed confinement status | CPT/HCPCS: A0425; A0428; A0429 ==

== ENCOUNTER 2021-01-31 09:10 | Outpatient (CLI) | payer MEDICARE, MEDICAID ==
[2021-01-31 09:18] LABS: BASOPHILS # (AUTO) 0.1 10^3/uL (0.0-0.1); BASOPHILS % (AUTO) 1.1 %; EOSINOPHILS # (AUTO) 0.3 10^3/uL (0.0-0.7); EOSINOPHILS % (AUTO) 4.3 %; HGB - HEMOGLOBIN 9.6 g/dL (14.0-18.0); LYMPHOCYTES # (AUTO) 1.2 10^3/uL (1.5-3.5); LYMPHOCYTES % (AUTO) 16.7 %; MEAN CORPUSCULAR HEMOGLOBIN 23.2 pg (27.0-31.0); MEAN CORPUSCULAR HGB CONC 29.1 g/dL (32.0-36.0); MEAN CORPUSCULAR VOLUME 79.9 fL (80.0-94.0); MEAN PLATELET VOLUME 10.7 fL (7.4-11.4); MONOCYTES # (AUTO) 0.6 10^3/uL (0.0-1.0); MONOCYTES % (AUTO) 7.9 %; NEUTROPHILS # (AUTO) 4.8 10^3/uL (1.5-6.6); NEUTROPHILS % (AUTO) 69.3 %; PLT - PLATELET COUNT 228 10^3/uL (130-450); RED BLOOD COUNT 4.13 10^6/uL (4.70-6.10); RED CELL DISTRIBUTION WIDTH 20.5 % (12.0-15.0)
[2021-01-31 09:30] LABS: CALCIUM 8.5 mg/dL (8.5-10.3); CREATININE 1.3 mg/dL (0.6-1.2); POTASSIUM 3.7 mmol/L (3.5-5.0)
== END 2021-01-31 09:11 | disposition home or self-care (01) ==
LOC: LAB.R 09:10
PROVIDERS: ATTEND Family Medicine
DX: I13.0 Hypertensive heart and chronic kidney disease with heart failure and stage 1 through stage 4 chronic kidney disease, or unspecified chronic kidney disease (principal); I50.43 Acute on chronic combined systolic (congestive) and diastolic (congestive) heart failure; N18.30 Chronic kidney disease, stage 3 unspecified
CPT/HCPCS: 36415; 80048; 85025

== ENCOUNTER 2021-02-28 14:44 | Outpatient (CLI) | payer MEDICARE, MEDICAID ==
[2021-02-28 14:57] LABS: BASOPHILS # (AUTO) 0.1 10^3/uL (0.0-0.1); BASOPHILS % (AUTO) 1.2 %; EOSINOPHILS # (AUTO) 0.1 10^3/uL (0.0-0.7); EOSINOPHILS % (AUTO) 1.4 %; HCT - HEMATOCRIT 37.8 % (42.0-52.0); HGB - HEMOGLOBIN 11.1 g/dL (14.0-18.0); LYMPHOCYTES # (AUTO) 0.8 10^3/uL (1.5-3.5); LYMPHOCYTES % (AUTO) 14.1 %; MEAN CORPUSCULAR HEMOGLOBIN 25.1 pg (27.0-31.0); MEAN CORPUSCULAR HGB CONC 29.4 g/dL (32.0-36.0); MEAN CORPUSCULAR VOLUME 85.3 fL (80.0-94.0); MEAN PLATELET VOLUME 10.9 fL (7.4-11.4); MONOCYTES # (AUTO) 0.6 10^3/uL (0.0-1.0); MONOCYTES % (AUTO) 10.4 %; NEUTROPHILS # (AUTO) 4.1 10^3/uL (1.5-6.6); NEUTROPHILS % (AUTO) 72.4 %; PLT - PLATELET COUNT 173 10^3/uL (130-450); RED BLOOD COUNT 4.43 10^6/uL (4.70-6.10); RED CELL DISTRIBUTION WIDTH 21.2 % (12.0-15.0); WHITE BLOOD COUNT 5.7 x10^3/uL (4.8-10.8)
[2021-02-28 15:09] LABS: ALBUMIN 3.1 g/dL (3.2-5.5); ALBUMIN/GLOBULIN RATIO 1.2 (1.0-2.2); BILIRUBIN,TOTAL 0.9 mg/dL (0.2-1.0); CALCIUM 8.7 mg/dL (8.5-10.3); CREATININE 1.3 mg/dL (0.6-1.2); TOTAL PROTEIN 5.7 g/dL (6.7-8.2)
== END 2021-02-28 14:45 | disposition home or self-care (01) ==
LOC: LAB 14:44
PROVIDERS: ATTEND Hospitalist
DX: E43 Unspecified severe protein-calorie malnutrition (principal)
CPT/HCPCS: 36415; 80053; 85025

== ENCOUNTER 2021-03-05 15:25 | Outpatient (CLI) | payer MEDICARE, MEDICAID ==
[2021-03-05 18:06] LABS: CALCIUM 8.8 mg/dL (8.5-10.3); CREATININE 1.2 mg/dL (0.6-1.2); POTASSIUM 4.2 mmol/L (3.5-5.0)
== END 2021-03-05 23:59 | disposition home or self-care (01) ==
LOC: LAB.R 15:25
PROVIDERS: ATTEND Hospitalist
DX: N18.30 Chronic kidney disease, stage 3 unspecified (principal)
CPT/HCPCS: 80048

== ENCOUNTER 2021-03-11 08:00 | Outpatient (CLI) | payer OTHER | END 2021-03-11 23:59 | LOC: LAB 08:00 | DX: L08.9 Local infection of the skin and subcutaneous tissue, unspecified (principal) | CPT/HCPCS: 87070; 87077; 87181; 87205 ==

== ENCOUNTER 2021-04-22 10:25 | Outpatient (CLI) | payer MEDICARE, MEDICAID ==
[2021-04-22 12:45] LABS: BASOPHILS # (AUTO) 0.1 10^3/uL (0.0-0.1); BASOPHILS % (AUTO) 0.7 %; EOSINOPHILS # (AUTO) 0.2 10^3/uL (0.0-0.7); EOSINOPHILS % (AUTO) 2.8 %; HCT - HEMATOCRIT 50.4 % (42.0-52.0); HGB - HEMOGLOBIN 15.9 g/dL (14.0-18.0); LYMPHOCYTES % (AUTO) 14.3 %; MEAN CORPUSCULAR HEMOGLOBIN 27.1 pg (27.0-31.0); MEAN CORPUSCULAR HGB CONC 31.5 g/dL (32.0-36.0); MEAN CORPUSCULAR VOLUME 85.9 fL (80.0-94.0); MONOCYTES # (AUTO) 0.6 10^3/uL (0.0-1.0); MONOCYTES % (AUTO) 7.8 %; NEUTROPHILS # (AUTO) 5.2 10^3/uL (1.5-6.6); NEUTROPHILS % (AUTO) 74.3 %; PLT - PLATELET COUNT 135 10^3/uL (130-450); RED BLOOD COUNT 5.87 10^6/uL (4.70-6.10); RED CELL DISTRIBUTION WIDTH 18.1 % (12.0-15.0)
[2021-04-22 12:50] LABS: ALBUMIN 3.3 g/dL (3.2-5.5); ALBUMIN/GLOBULIN RATIO 1.3 (1.0-2.2); BILIRUBIN,TOTAL 0.8 mg/dL (0.2-1.0); CALCIUM 8.5 mg/dL (8.5-10.3); CREATININE 1.3 mg/dL (0.6-1.2); POTASSIUM 3.9 mmol/L (3.5-5.0); TOTAL PROTEIN 5.8 g/dL (6.7-8.2)
[2021-04-22 20:17] LABS: ESTIMATED AVERAGE GLUCOSE 114 mg/dL (70-100); HEMOGLOBIN A1c% 5.6 % (4.27-6.07)
== END 2021-04-22 23:59 | disposition home or self-care (01) ==
LOC: LAB.R 10:25
PROVIDERS: ATTEND Hospitalist
DX: E11.22 Type 2 diabetes mellitus with diabetic chronic kidney disease (principal); N18.30 Chronic kidney disease, stage 3 unspecified
CPT/HCPCS: 80053; 83036; 85025

== ENCOUNTER 2021-05-07 08:00 | Outpatient (CLI) | payer MEDICARE, MEDICAID ==
[2021-05-07 13:38] LABS: BILIRUBIN,URINE NEGATIVE (NEGATIVE); GLUCOSE, URINE (UA) NEGATIVE (NEGATIVE); KETONES,URINE (UA) NEGATIVE (NEGATIVE); LEUKOCYTE ESTERASE, URINE TRACE (NEGATIVE); NITRITE,URINE NEGATIVE (NEGATIVE); OCCULT BLOOD,URINE NEGATIVE (NEGATIVE); PH,URINE >=9.0 PH (5.0-7.5); PROTEIN,URINE NEGATIVE (NEGATIVE); UROBILINOGEN,URINE 0.2 (NORMAL) E.U./dL (NORMAL)
[2021-05-07 13:47] LABS: CLARITY,URINE HAZY (CLEAR)
[2021-05-07 13:53] LABS: BACTERIA,URINE Moderate /HPF (None Seen); RBC,URINE 0-5 /HPF (0-5); SQUAMOUS EPITHELIAL CELL,UR RARE Squamous (<= Few); WBC,URINE 0-3 /HPF (0-3)
== END 2021-05-07 23:59 ==
LOC: LAB.R 08:00
DX: N39.0 Urinary tract infection, site not specified (principal)
CPT/HCPCS: 81001; 87077; 87086; 87181

== ENCOUNTER 2021-05-09 07:30 | Outpatient (CLI) | payer MEDICARE, MEDICAID | END 2021-05-09 07:31 | disposition short-term general hospital (02) | LOC: EMS 07:30 | DX: R33.9 Retention of urine, unspecified (principal); R10.33 Periumbilical pain | CPT/HCPCS: A0425; A0429 ==

== ENCOUNTER 2021-05-12 15:36 | Outpatient (CLI) | payer MEDICARE, MEDICAID ==
[2021-05-12 16:23] LABS: BASOPHILS # (AUTO) 0.1 10^3/uL (0.0-0.1); EOSINOPHILS # (AUTO) 0.2 10^3/uL (0.0-0.7); EOSINOPHILS % (AUTO) 3.4 %; HCT - HEMATOCRIT 52.3 % (42.0-52.0); HGB - HEMOGLOBIN 16.6 g/dL (14.0-18.0); LYMPHOCYTES # (AUTO) 1.1 10^3/uL (1.5-3.5); LYMPHOCYTES % (AUTO) 17.3 %; MEAN CORPUSCULAR HEMOGLOBIN 27.5 pg (27.0-31.0); MEAN CORPUSCULAR HGB CONC 31.7 g/dL (32.0-36.0); MEAN CORPUSCULAR VOLUME 86.7 fL (80.0-94.0); MEAN PLATELET VOLUME 11.8 fL (7.4-11.4); MONOCYTES # (AUTO) 0.8 10^3/uL (0.0-1.0); MONOCYTES % (AUTO) 12.1 %; NEUTROPHILS # (AUTO) 4.1 10^3/uL (1.5-6.6); NEUTROPHILS % (AUTO) 65.9 %; PLT - PLATELET COUNT 155 10^3/uL (130-450); RED BLOOD COUNT 6.03 10^6/uL (4.70-6.10); RED CELL DISTRIBUTION WIDTH 16.8 % (12.0-15.0); WHITE BLOOD COUNT 6.2 x10^3/uL (4.8-10.8)
[2021-05-12 16:28] LABS: ALBUMIN 3.3 g/dL (3.2-5.5); ALBUMIN/GLOBULIN RATIO 1.1 (1.0-2.2); BILIRUBIN,TOTAL 0.8 mg/dL (0.2-1.0); CALCIUM 8.8 mg/dL (8.5-10.3); CREATININE 1.2 mg/dL (0.6-1.2); POTASSIUM 4.5 mmol/L (3.5-5.0); TOTAL PROTEIN 6.3 g/dL (6.7-8.2)
== END 2021-05-12 15:37 | disposition home or self-care (01) ==
LOC: LAB.R 15:36
DX: E11.9 Type 2 diabetes mellitus without complications (principal); D50.9 Iron deficiency anemia, unspecified
CPT/HCPCS: 80053; 85025

== ENCOUNTER 2021-06-17 14:43 | Outpatient (CLI) | payer MEDICARE, MEDICAID | END 2021-06-17 14:44 | disposition EMS.NT | LOC: EMS 14:43 | DX: Z03.89 Encounter for observation for other suspected diseases and conditions ruled out (principal) ==

== ENCOUNTER 2021-06-17 16:14 | Outpatient (CLI) | payer MEDICARE, MEDICAID | END 2021-06-17 16:15 | disposition EMS.NT | LOC: EMS 16:14 | DX: Z03.89 Encounter for observation for other suspected diseases and conditions ruled out (principal) ==

== ENCOUNTER 2021-06-18 03:07 | Outpatient (CLI) | payer MEDICARE, MEDICAID | END 2021-06-18 03:08 | disposition left against medical advice (07) | LOC: EMS 03:07 | DX: Z03.89 Encounter for observation for other suspected diseases and conditions ruled out (principal) ==

== ENCOUNTER 2021-06-21 10:48 | Outpatient (CLI) | payer MEDICARE, MEDICAID | END 2021-06-21 10:49 | disposition critical access hospital (66) | LOC: EMS 10:48 | DX: R53.1 Weakness (principal); R62.7 Adult failure to thrive; Z74.9 Problem related to care provider dependency, unspecified | CPT/HCPCS: A0425; A0429 ==

== ENCOUNTER 2021-06-21 11:07 | Emergency (ER) | payer MEDICARE, MEDICAID ==
[2021-06-21] MEDS ORDERED: METOPROLOL TARTRATE 50 MG TABLET PO STA (11:56)
--- NOTE | 2021-06-21 13:36 | ED Physician Documentation ---
History of Present Illness - Stated complaint Stated Complaint: FEELING UNWELL - Chief complaint Chief Complaint: General - History obtained from History obtained from: Patient, EMS - History of Present Illness Pain level max: 0 Pain level now: 0 - Additonal information Additional information: Patient is a 76-year-old male brought in by EMS today. He states that he has been unable to get his home medications. He states that he left [facility] last week to return to his apartment at home. He states that he has no new complaints and does not want to go back to [facility]. He is currently living in his own apartment. Review of Systems Ten Systems: 10 systems reviewed and negative Constitutional: denies: Fever, Chills Ears: denies: Ear pain Nose: denies: Rhinorrhea / runny nose Throat: denies: Sore throat Cardiac: denies: Chest pain / pressure Respiratory: denies: Dyspnea, Cough Skin: denies: Rash Musculoskeletal: denies: Neck pain, Back pain Neurologic: denies: Headache PD PAST MEDICAL HISTORY - Past Medical History Past Medical History: Yes Cardiovascular: Congestive heart failure, Hypertension, High cholesterol, Peripheral Vascular Disease, [place], Atrial fibrillation, Murmur Respiratory: Asthma, COPD, Pneumonia Neuro: Dementia, CVA, Headaches, Tremors Endocrine/Autoimmune: Type 2 diabetes GI: GERD : Benign prostate hypertrophy, Nocturia HEENT: Chronic vision loss, Chronic sinusitis, Chronic hearing loss Psych: Depression Musculoskeletal: Osteoarthritis, Osteoporosis, Hemiplegia Derm: None - Past Surgical History Past Surgical History: Yes - Present Medications Home Medications: Ambulatory Orders Medication Instructions Recorded Confirmed Atorvastatin Calcium 40 mg PO QPM 03/04/18 06/21/21 Apixaban [Eliquis] 5 mg PO BID 06/21/21 06/21/21 Ferrous Sulfate 650 mg PO BID 06/21/21 06/21/21 Magnesium Oxide 400 mg PO DAILY 06/21/21 06/21/21 Metoprolol Succinate [Toprol Xl] 12.5 mg PO BID 06/21/21 06/21/21 Senna [Senokot] 8.6 mg PO DAILY 06/21/21 06/21/21 Tamsulosin [Flomax] 0.4 mg PO DAILY 06/21/21 06/21/21 buPROPion HCL [Bupropion HCl] 100 mg PO BID 06/21/21 06/21/21 - Allergies Allergies/Adverse Reactions: Allergies Allergy/AdvReac Type Severity Reaction Status Date / Time No Known Drug Allergies Allergy Verified 06/21/21 11:22 - Social History Does the pt smoke?: No Smoking Status: Never smoker Does the pt drink ETOH?: Yes Does the pt have substance abuse?: No - Immunizations Immunizations are current?: No Immunizations: TDAP >10years/unknown - POLST Patient has POLST: No POLST Status: DNR PD ED PE NORMAL - Vitals Vital signs reviewed: Yes - General General: Alert and oriented X 3, No acute distress - HEENT HEENT: Moist mucous membranes - Neck Neck: Supple, no meningeal sign - Cardiac Cardiac: RRR - Respiratory Respiratory: No respiratory distress, Clear bilaterally - Abdomen Abdomen: Soft, Non tender, Non distended - Derm Derm: Warm and dry - Extremities Extremities: No edema, No calf tenderness / cord - Neuro Neuro: Alert and oriented X 3 Results - Vitals Vitals: Vital Signs - 24 hr 06/21/21 06/21/21 06/21/21 11:16 11:37 13:34 Temperature 36.7 C Heart Rate 66 125 H 92 Respiratory 17 23 24 Rate Blood Pressure 122/98 H 139/102 H 135/97 H O2 Saturation 98 96 98 06/21/21 13:38 Temperature Heart Rate 92 Respiratory 20 Rate Blood Pressure 135/97 H O2 Saturation 97 Oxygen O2 Source Room air PD MEDICAL DECISION MAKING - ED course Complexity details: considered differential, d/w patient ED course: Patient does not want to go back to a [facility] today. He wants to go home. He states that he has a caregiver at home. [facility] was contacted and they state that they will either bring his medications over to the emergency department or send the to a pharmacy of his choosing. Social work was consulted. Patient was given resources for home. No indication for admission. Patient is alert and oriented x3. Ambulating with a steady gait. Refuses any blood work. Patient counseled regarding signs and symptoms for which I believe and urgent re-evaluation would be necessary. Patient with good understanding of and agreement to plan and is comfortable going home at this time This document was made in part using voice recognition software. While efforts are made to proofread this document, sound alike and grammatical errors may occur. Departure - Departure Disposition: 01 Home, Self Care Clinical Impression: Encounter for medical screening examination Condition: Good Instructions: ED Screening Exam Medical Nonurgent Follow-Up: Provider,Other [Primary Care Provider] - Within 1 week Comments: Please follow-up with your doctor for further care. Kobe will either send your prescriptions to your preferred pharmacy or will bring the medication over to the emergency department today before you leave.
[2021-06-21 14:58] VITALS: BP 130/90
--- NOTE | 2021-06-21 15:13 | ED Physician Documentation ---
ED Addendum - Addendum Addendum: 06/21/21 15:13 Kobe was unable to locate his medications. Therefore new prescriptions were sent to [facility] for the patient. Departure - Departure Disposition: 01 Home, Self Care Clinical Impression: Encounter for medical screening examination Condition: Good Instructions: ED Screening Exam Medical Nonurgent Follow-Up: Provider,Other [Primary Care Provider] - Within 1 week Prescriptions: Atorvastatin Calcium 40 mg PO QPM #30 tab buPROPion HCL [Bupropion HCl] 100 mg PO BID #60 tab Apixaban [Eliquis] 5 mg PO BID #60 tab Tamsulosin [Flomax] 0.4 mg PO DAILY #30 cap Metoprolol Succinate [Toprol Xl] 12.5 mg PO BID #30 tab Comments: Please follow-up with your doctor for further care. Kobe will either send your prescriptions to your preferred pharmacy or will bring the medication over to the emergency department today before you leave. Discharge Date/Time: 06/21/21 14:56
== END 2021-06-21 14:56 | disposition home or self-care (01) ==
LOC: EDUNIT# → ED 11:07
DX: Z76.0 Encounter for issue of repeat prescription (principal); Z66 Do not resuscitate
CPT/HCPCS: 99281; 99283; A9270

== ENCOUNTER 2021-06-23 07:20 | Outpatient (CLI) | payer MEDICARE, MEDICAID | END 2021-06-23 23:59 | disposition EMS.NT | LOC: EMS 07:20 | DX: Z03.89 Encounter for observation for other suspected diseases and conditions ruled out (principal) ==

== ENCOUNTER 2021-07-10 07:17 | Outpatient (CLI) | payer MEDICARE, MEDICAID | END 2021-07-10 07:18 | disposition critical access hospital (66) | LOC: EMS 07:17 | DX: S09.90XA Unspecified injury of head, initial encounter (principal); Z79.01 Long term (current) use of anticoagulants; W06.XXXA Fall from bed, initial encounter; Y92.003 Bedroom of unspecified non-institutional (private) residence as the place of occurrence of the external cause | CPT/HCPCS: A0425; A0429 ==

== ENCOUNTER 2021-07-10 07:35 | Emergency (ER) | payer MEDICARE, MEDICAID ==
[2021-07-10] MEDS ORDERED: SODIUM CHLORIDE 0.9% 1,000 ML IV STA (08:17)
--- NOTE | 2021-07-10 08:29 | CT Report ---
PROCEDURE: CT brain without contrast INDICATIONS: Ground-level fall, oral anticoagulation TECHNIQUE: Noncontrast 4.5 mm thick angled axial sections acquired from the foramen magnum to the vertex. For r adiation dose reduction, the following was used: automated exposure control, adjustment of mA and/or kV according to patient size. COMPARISON: 03/02/2018 FINDINGS: Image quality: Excellent. CSF spaces: Basal cisterns are patent. No extra-axial fluid collections. Ventricles are normal in size and shape. Brain: No midline shift. No intracranial masses or hemorrhage. Covarrubias-white matter interface is norm al. Moderate atrophy and multifocal white matter chronic ischemic change noted. Atherosclerotic vascu lar calcification noted in the cavernous segments of both internal carotid arteries as well as the in tradural vertebral arteries. Old lacunar infarct noted in the left caudate is nevertheless new from t he prior exam. Skull and face: Calvarium and visualized facial bones are intact, without suspicious lesions. Bilat eral intraocular lens replacements noted. Sinuses: Visualized sinuses and mastoids are clear. IMPRESSION: Atrophy and chronic ischemic change without intracranial hemorrhage or mass effect. Old lacunar infarct, left basal ganglia Reviewed by: Krish Chapman MD on 07/10/2021 7:28 AM CARA Approved by: Krish Chapman MD on 07/10/2021 7:28 AM AKRUPERT Station ID: [id number]
--- NOTE | 2021-07-10 08:30 | XRAY Report ---
PROCEDURE: Chest 1 View X-Ray INDICATIONS: chest pain TECHNIQUE: One view of the chest was acquired. COMPARISON: None FINDINGS: Surgical changes and devices: Aortic valve replacement and mitral valve clips noted in appropriate po sition. Lungs and pleura: No pleural effusions or pneumothorax. Lungs are clear. Left calcified granuloma present. Mediastinum: Mediastinal contours appear normal. Heart size is normal. Bones and chest wall: No suspicious bony lesions. Overlying soft tissues appear unremarkable. IMPRESSION: No acute cardiopulmonary findings Reviewed by: Krish Chapman MD on 07/10/2021 7:29 AM CARA Approved by: Krish Chapman MD on 07/10/2021 7:29 AM CARA Station ID: [id number]
[2021-07-10 08:34] LABS: BASOPHILS # (AUTO) 0.1 10^3/uL (0.0-0.1); BASOPHILS % (AUTO) 0.7 %; EOSINOPHILS # (AUTO) 0.2 10^3/uL (0.0-0.7); EOSINOPHILS % (AUTO) 2.4 %; HCT - HEMATOCRIT 53.6 % (42.0-52.0); HGB - HEMOGLOBIN 17.9 g/dL (14.0-18.0); LYMPHOCYTES # (AUTO) 1.2 10^3/uL (1.5-3.5); LYMPHOCYTES % (AUTO) 14.5 %; MEAN CORPUSCULAR HEMOGLOBIN 30.1 pg (27.0-31.0); MEAN CORPUSCULAR HGB CONC 33.4 g/dL (32.0-36.0); MEAN CORPUSCULAR VOLUME 90.1 fL (80.0-94.0); MEAN PLATELET VOLUME 11.2 fL (7.4-11.4); MONOCYTES # (AUTO) 0.7 10^3/uL (0.0-1.0); MONOCYTES % (AUTO) 8.6 %; NEUTROPHILS # (AUTO) 6.1 10^3/uL (1.5-6.6); NEUTROPHILS % (AUTO) 73.6 %; PLT - PLATELET COUNT 180 10^3/uL (130-450); RED BLOOD COUNT 5.95 10^6/uL (4.70-6.10); RED CELL DISTRIBUTION WIDTH 14.6 % (12.0-15.0); WHITE BLOOD COUNT 8.3 x10^3/uL (4.8-10.8)
--- NOTE | 2021-07-10 08:45 | ED Physician Documentation ---
PD HPI Fall - Stated complaint Stated Complaint: GLF - Chief complaint Chief Complaint: Trauma Hd/Nk - History obtained from History obtained from: Patient, EMS - History of Present Illness Mechanism of injury: Tripped Fall distance: Standing position Where injury occurred: Home Timing - onset: Today Injury(ies) location: Head Associated symptoms: LOC. No: AMS, Amnesia, Seizures, Ear drainage, Nasal drainage, Neck pain, Weakness, Paresthesias, Dyspnea, Nausea / vomiting, He matemesis, Abdominal distension Symptoms improve with: Rest Worsens with: Movement, Palpation Contributing factors: Anticoagulated Similar symptoms before: Diagnosis (head contusion on blood thinner) Recently seen: Not recently seen - Treatment prior to arrival Treatment prior to arrival: Yon Finn is a 76-year-old male who is on Eliquis for atrial fibrillation and this morning he has had a fall in his home hitting the back of his head without loss of consciousness he has called the ambulance they have come to bring him here to the hospital. Review of Systems Constitutional: denies: Fever Nose: denies: Congestion Throat: denies: Sore throat Respiratory: denies: Cough GI: denies: Vomiting PD PAST MEDICAL HISTORY - Past Medical History Cardiovascular: Congestive heart failure, Hypertension, High cholesterol, Periph eral Vascular Disease, [place], Atrial fibrillation, Murmur Respiratory: Asthma, COPD, Pneumonia Neuro: Dementia, CVA, Headaches, Tremors Endocrine/Autoimmune: Type 2 diabetes GI: GERD : Benign prostate hypertrophy, Nocturia HEENT: Chronic vision loss, Chronic sinusitis, Chronic hearing loss Psych: Depression Musculoskeletal: Osteoarthritis, Osteoporosis, Hemiplegia Derm: None - Past Surgical History Past Surgical History: Yes - Present Medications Home Medications: Ambulatory Orders Medication Instructions Recorded Confirmed Apixaban [Eliquis] 5 mg PO BID #60 tab 06/21/21 Atorvastatin Calcium 40 mg PO QPM #30 tab 06/21/21 Ferrous Sulfate 650 mg PO BID 06/21/21 06/21/21 Magnesium Oxide 400 mg PO DAILY 06/21/21 06/21/21 Metoprolol Succinate [Toprol Xl] 12.5 mg PO BID #30 tab 06/21/21 Senna [Senokot] 8.6 mg PO DAILY 06/21/21 06/21/21 Tamsulosin [Flomax] 0.4 mg PO DAILY #30 cap 06/21/21 buPROPion HCL [Bupropion HCl] 100 mg PO BID #60 tab 06/21/21 - Allergies Allergies/Adverse Reactions: Allergies Allergy/AdvReac Type Severity Reaction Status Date / Time No Known Drug Allergies Allergy Verified 07/10/21 07:44 - Social History Does the pt smoke?: No Smoking Status: Never smoker Does the pt drink ETOH?: Yes Does the pt have substance abuse?: No - Immunizations Immunizations are current?: No Immunizations: TDAP >10years/unknown - POLST Patient has POLST: No POLST Status: DNR PD ED PE NORMAL - Vitals Vital signs reviewed: Yes (hypertensive ) - General General: No acute distress, Well developed/nourished - HEENT HEENT: PERRL, EOMI, Other (occipital tenderness is mild without swelling stepoff or crepitance. 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, No motor deficit, No sensory deficit, Normal speech Eye Opening: Spontaneous Motor: Obeys Commands Verbal: Oriented GCS Score: 15 - Psych Psych: Normal mood, Normal affect Results - Vitals Vitals: Vital Signs - 24 hr 07/10/21 07/10/21 07/10/21 07:38 09:32 11:27 Temperature 36.9 C Heart Rate 89 72 71 Respiratory 16 21 34 H Rate Blood Pressure 154/90 H 128/74 128/78 O2 Saturation 100 97 99 Oxygen O2 Source Room air - Labs Labs: Laboratory Tests 07/10/21 07/10/21 07/10/21 08:15 08:15 08:15 WBC 8.3 RBC 5.95 Hgb 17.9 Hct 53.6 H MCV 90.1 MCH 30.1 MCHC 33.4 RDW 14.6 Plt Count 180 MPV 11.2 Neut # (Auto) 6.1 Lymph # (Auto) 1.2 L [place] # (Auto) 0.7 Eos # (Auto) 0.2 Baso # (Auto) 0.1 Absolute Nucleated RBC 0.00 Nucleated RBC % 0.0 Sodium 138 Potassium 4.3 Chloride 106 Carbon Dioxide 23 Anion Gap 9.0 BUN 18 Creatinine 1.4 H Estimated GFR (MDRD) 49 L Glucose 133 H Lactic Acid 1.4 Calcium 9.1 Total Bilirubin 1.4 H AST 18 ALT 12 Alkaline Phosphatase 69 Total Protein 6.8 Albumin 3.8 Globulin 3.0 Albumin/Globulin Ratio 1.3 Lipase 35 - Rads (name of study) CT head Radiology: Prelim report reviewed (Impression: Atrophy and chronic ischemic change without intracranial hemorrhage or mass-effect. Old lacunar infarct, left basal ganglion.), EMP read indepedently, See rad report chest Radiology: Prelim report reviewed (Impression: No acute cardiopulmonary findings.), EMP read indepedently (looks like a dry chest), See rad report PD MEDICAL DECISION MAKING - ED course Complexity details: reviewed results, re-evaluated patient, considered differential, d/w patient ED course: 76-year-old male presents with a ground-level fall at home generally feeling weak he is found to be dehydrated on interrogation the inferior vena cava and administered saline. A CT scan of the head is without evidence of intracranial hemorrhage. I did asked the patient if he wanted additional help at home and he indicated this was likely necessary and we do not have social work to help us with this today. He is understanding of this and wants to return home. Departure - Departure Disposition: 01 Home, Self Care Clinical Impression: Dehydration Instructions: ED Dehydration Follow-Up: Johanne Morel ARNP [Credentialed Staff Provider] - Comments: Yon today we discovered that you are significantly dehydrated and my recommendation is to place water in your home where you can easily reach it and use a urinal at night so that you do not have to make an effort to get to the bathroom. Increase your general level of fluid intake. Today we do not have a social worker health services for additional resources. My recommendation is to follow up with Johanne Morel to consider additional resources to aid with further rehabilitation in your home. Discharge Date/Time: 07/10/21 13:06
[2021-07-10 08:53] LABS: ALBUMIN 3.8 g/dL (3.2-5.5); ALBUMIN/GLOBULIN RATIO 1.3 (1.0-2.2); BILIRUBIN,TOTAL 1.4 mg/dL (0.2-1.0); CALCIUM 9.1 mg/dL (8.5-10.3); CREATININE 1.4 mg/dL (0.6-1.2); POTASSIUM 4.3 mmol/L (3.5-5.0); TOTAL PROTEIN 6.8 g/dL (6.7-8.2)
[2021-07-10 11:31] VITALS: BP 128/78
== END 2021-07-10 13:06 | disposition home or self-care (01) ==
LOC: EDUNIT# → ED 07:35
DX: E86.0 Dehydration (principal); S09.90XA Unspecified injury of head, initial encounter; W18.30XA Fall on same level, unspecified, initial encounter; Y92.009 Unspecified place in unspecified non-institutional (private) residence as the place of occurrence of the external cause; I48.91 Unspecified atrial fibrillation; Z79.01 Long term (current) use of anticoagulants; I11.0 Hypertensive heart disease with heart failure; I50.9 Heart failure, unspecified; R53.1 Weakness
CPT/HCPCS: 36415; 80053; 83605; 83690; 85025; 96360; 99282

== ENCOUNTER 2021-07-11 10:22 | Outpatient (CLI) | payer MEDICARE, MEDICAID | END 2021-07-11 10:23 | disposition EMS.NT | LOC: EMS 10:22 | DX: Z03.89 Encounter for observation for other suspected diseases and conditions ruled out (principal) ==

== ENCOUNTER 2021-07-19 10:44 | Outpatient (CLI) | payer MEDICARE, MEDICAID | END 2021-07-19 10:45 | disposition EMS.NT | LOC: EMS 10:44 | DX: Z03.89 Encounter for observation for other suspected diseases and conditions ruled out (principal) ==

== ENCOUNTER 2021-10-15 14:15 | Outpatient (CLI) | payer MEDICARE, MEDICAID | END 2021-10-15 14:16 | disposition EMS.NT | LOC: EMS 14:15 | DX: R53.1 Weakness (principal) ==

== ENCOUNTER 2021-10-25 22:58 | Outpatient (CLI) | payer MEDICARE, MEDICAID | END 2021-10-25 22:59 | disposition EMS.NT | LOC: EMS 22:58 | DX: Z03.89 Encounter for observation for other suspected diseases and conditions ruled out (principal) ==

== ENCOUNTER 2021-11-04 09:37 | Outpatient (CLI) | payer MEDICARE, MEDICAID | END 2021-11-04 09:38 | disposition EMS.NT | LOC: EMS 09:37 | DX: Z03.89 Encounter for observation for other suspected diseases and conditions ruled out (principal) ==

== ENCOUNTER 2021-11-14 08:32 | Outpatient (CLI) | payer MEDICARE, MEDICAID | END 2021-11-14 08:33 | disposition critical access hospital (66) | LOC: EMS 08:32 | DX: S51.012A Laceration without foreign body of left elbow, initial encounter (principal); W01.0XXA Fall on same level from slipping, tripping and stumbling without subsequent striking against object, initial encounter; Y92.008 Other place in unspecified non-institutional (private) residence as the place of occurrence of the external cause; Z79.01 Long term (current) use of anticoagulants | CPT/HCPCS: A0425; A0429 ==

== ENCOUNTER 2021-11-14 08:56 | Emergency (ER) | payer MEDICARE, MEDICAID ==
[2021-11-14 09:09] VITALS: BP 130/74
--- NOTE | 2021-11-14 09:25 | XRAY Report ---
PROCEDURE: Elbow 2 View LT INDICATIONS: fall/pain TECHNIQUE: 2 views of the elbow were acquired. COMPARISON: None FINDINGS: Bones: No fractures or dislocations. No suspicious bony lesions. Soft tissues: No elbow joint effusion. No suspicious soft tissue calcifications. IMPRESSION: No gross acute left elbow fracture or dislocation. No significant joint effusion. Reviewed by: Heraclio Negrete MD on 11/14/2021 9:24 AM PDT Approved by: Heraclio Negrete MD on 11/14/2021 9:24 AM PDT Station ID: [id number]
--- NOTE | 2021-11-14 09:25 | CT Report ---
PROCEDURE: HEAD WO INDICATIONS: fall TECHNIQUE: Noncontrast 4.5 mm thick angled axial sections acquired from the foramen magnum to the vertex. For r adiation dose reduction, the following was used: automated exposure control, adjustment of mA and/or kV according to patient size. COMPARISON: 10/12/2021. FINDINGS: Image quality: Excellent. CSF spaces: Basal cisterns are patent. No extra-axial fluid collections. Ventricles are normal in size and shape. Brain: No midline shift. No intracranial masses or hemorrhage. Covarrubias-white matter interface is norm al. Moderate atrophy and multifocal white matter chronic ischemic change noted. Atherosclerotic vasc ular calcification noted in the cavernous segments of both internal carotid arteries as well as the i ntradural vertebral arteries. Multiple lacunar infarcts noted in the left thalamus, left caudate and bilateral lentiform nuclei Skull and face: Calvarium and visualized facial bones are intact, without suspicious lesions. Sinuses: Visualized sinuses and mastoids are clear. IMPRESSION: 1. No CT evidence of acute intracranial abnormalities. No significant changes from previous study. Reviewed by: Heraclio Negrete MD on 11/14/2021 9:23 AM PDT Approved by: Heraclio Negrete MD on 11/14/2021 9:23 AM PDT Station ID: [id number]
[2021-11-14 09:38] LABS: BASOPHILS # (AUTO) 0.1 10^3/uL (0.0-0.1); BASOPHILS % (AUTO) 0.7 %; EOSINOPHILS # (AUTO) 0.2 10^3/uL (0.0-0.7); EOSINOPHILS % (AUTO) 2.4 %; HCT - HEMATOCRIT 49.4 % (42.0-52.0); HGB - HEMOGLOBIN 16.5 g/dL (14.0-18.0); LYMPHOCYTES # (AUTO) 0.9 10^3/uL (1.5-3.5); LYMPHOCYTES % (AUTO) 12.9 %; MEAN CORPUSCULAR HEMOGLOBIN 31.5 pg (27.0-31.0); MEAN CORPUSCULAR HGB CONC 33.4 g/dL (32.0-36.0); MEAN CORPUSCULAR VOLUME 94.3 fL (80.0-94.0); MEAN PLATELET VOLUME 10.6 fL (7.4-11.4); MONOCYTES # (AUTO) 0.5 10^3/uL (0.0-1.0); MONOCYTES % (AUTO) 8.1 %; NEUTROPHILS # (AUTO) 5.1 10^3/uL (1.5-6.6); NEUTROPHILS % (AUTO) 75.6 %; PLT - PLATELET COUNT 172 10^3/uL (130-450); RED BLOOD COUNT 5.24 10^6/uL (4.70-6.10); RED CELL DISTRIBUTION WIDTH 13.2 % (12.0-15.0); WHITE BLOOD COUNT 6.7 x10^3/uL (4.8-10.8)
[2021-11-14 09:43] LABS: INR 1.5 (0.8-1.2); PT - PROTHROMBIN TIME 16.3 secs (9.9-12.6)
[2021-11-14 09:49] LABS: ALBUMIN 3.6 g/dL (3.2-5.5); ALBUMIN/GLOBULIN RATIO 1.4 (1.0-2.2); ALKALINE PHOSPHATASE 65 IU/L (42-121); ALT ALANINE AMINOTRANSFERASE < 10 IU/L (10-60); AST ASPARTATE AMINOTRANSFERASE 14 IU/L (10-42); BILIRUBIN,TOTAL 1.3 mg/dL (0.2-1.0); BUN - BLOOD UREA NITROGEN 17 mg/dL (6-20); CALCIUM 8.6 mg/dL (8.5-10.3); CARBON DIOXIDE - CO2 25 mmol/L (21-32); CHLORIDE 105 mmol/L (101-111); CREATININE 1.1 mg/dL (0.6-1.2); GFR - MDRD 65 (>89); GLUCOSE 131 mg/dL (70-100); POTASSIUM 3.9 mmol/L (3.5-5.0); SODIUM 138 mmol/L (135-145); TOTAL PROTEIN 6.2 g/dL (6.7-8.2)
--- NOTE | 2021-11-14 11:16 | ED Physician Documentation ---
PD HPI UPPER EXT INJURY - Stated complaint Stated Complaint: FALL/HEAD INJURY - Chief complaint Chief Complaint: Trauma Ext - History obtained from History obtained from: Patient, EMS - Additonal information Additional information: Patient is a 76-year-old male brought in for evaluation after an unwitnessed fall. He lives alone and reports using his walker and tripped and fell. He does believe he hit his head but denies losing consciousness. He has skin tear to the left arm. He is on Eliquis for history of A. fib.Per EMS he is known to them for history of falls.Patient denies any symptoms prior to falling.He has a life alert necklace and was able to call for help with that. Review of Systems Constitutional: denies: Fever Nose: denies: Congestion Cardiac: denies: Chest pain / pressure Respiratory: denies: Dyspnea GI: denies: Abdominal Pain : denies: Dysuria Skin: reports: Laceration (s) Musculoskeletal: denies: Neck pain Neurologic: reports: Head injury. denies: Syncope PD PAST MEDICAL HISTORY - Past Medical History Past Medical History: Yes Cardiovascular: Congestive heart failure, Hypertension, High cholesterol, Peripheral Vascular Disease, [place], Atrial fibrillation, Murmur Respiratory: Asthma, COPD, Pneumonia Neuro: Dementia, CVA, Headaches, Tremors Endocrine/Autoimmune: Type 2 diabetes GI: GERD : Benign prostate hypertrophy, Nocturia HEENT: Chronic vision loss, Chronic sinusitis, Chronic hearing loss Psych: Depression Musculoskeletal: Osteoarthritis, Osteoporosis, Hemiplegia Derm: None - Past Surgical History Past Surgical History: Yes - Present Medications Home Medications: Ambulatory Orders Medication Instructions Recorded Confirmed Apixaban [Eliquis] 5 mg PO BID #60 tab 06/21/21 Atorvastatin Calcium 40 mg PO QPM #30 tab 06/21/21 Ferrous Sulfate 650 mg PO BID 06/21/21 06/21/21 Magnesium Oxide 400 mg PO DAILY 06/21/21 06/21/21 Metoprolol Succinate [Toprol Xl] 12.5 mg PO BID #30 tab 06/21/21 Senna [Senokot] 8.6 mg PO DAILY 06/21/21 06/21/21 Tamsulosin [Flomax] 0.4 mg PO DAILY #30 cap 06/21/21 buPROPion HCL [Bupropion HCl] 100 mg PO BID #60 tab 06/21/21 - Allergies Allergies/Adverse Reactions: Allergies Allergy/AdvReac Type Severity Reaction Status Date / Time No Known Drug Allergies Allergy Verified 11/14/21 09:10 - Social History Does the pt smoke?: No Smoking Status: Never smoker Does the pt drink ETOH?: Yes Does the pt have substance abuse?: No - Immunizations Immunizations are current?: No Immunizations: TDAP >10years/unknown - POLST Patient has POLST: No POLST Status: DNR PD ED PE NORMAL - General General: Alert and oriented X 3, No acute distress, Other (Elderly, frail- appearing) - HEENT HEENT: Atraumatic, PERRL, EOMI - Neck Neck: Supple, no meningeal sign, No bony TTP, C-Spine cleared by NEXUS criteria - Cardiac Cardiac: RRR, No murmur, Strong equal pulses - Respiratory Respiratory: No respiratory distress, Clear bilaterally - Abdomen Abdomen: Normal bowel sounds, Soft, Non tender, Non distended - Derm Derm: Warm and dry - Extremities Extremities: Normal ROM s pain, Other (Multiple superficial skin tears to left elbow, normal range of motion of bilateral upper extremities) - Neuro Neuro: Alert and oriented X 3, 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, No motor deficit, Normal speech Eye Opening: Spontaneous Motor: Obeys Commands Verbal: Oriented GCS Score: 15 Results - Vitals Vitals: Vital Signs - 24 hr 11/14/21 09:04 Temperature 36.7 C Heart Rate 89 Respiratory 16 Rate Blood Pressure 130/74 O2 Saturation 98 Oxygen O2 Source Room air - Labs Labs: Laboratory Tests 11/14/21 11/14/21 11/14/21 09:30 09:30 09:30 WBC 6.7 RBC 5.24 Hgb 16.5 Hct 49.4 MCV 94.3 H MCH 31.5 H MCHC 33.4 RDW 13.2 Plt Count 172 MPV 10.6 Neut # (Auto) 5.1 Lymph # (Auto) 0.9 L [place] # (Auto) 0.5 Eos # (Auto) 0.2 Baso # (Auto) 0.1 Absolute Nucleated RBC 0.00 Nucleated RBC % 0.0 PT 16.3 H INR 1.5 H Sodium 138 Potassium 3.9 Chloride 105 Carbon Dioxide 25 Anion Gap 8.0 BUN 17 Creatinine 1.1 Estimated GFR (MDRD) 65 L Glucose 131 H Calcium 8.6 Total Bilirubin 1.3 H AST 14 ALT < 10 L Alkaline Phosphatase 65 Total Protein 6.2 L Albumin 3.6 Globulin 2.6 Albumin/Globulin Ratio 1.4 PD MEDICAL DECISION MAKING - ED course Complexity details: reviewed results, re-evaluated patient, d/w patient ED course: Pt with unwitnessed fall at home, appears to have frequent falls but has declined additional assistance at home. Normal neuro exam. C spine cleared by [facility]. CT head neg for ICH and elbow XR negative for injury. Multiple skin tears but no lacerations requiring sutures. Labs unremarkable and VSS. Pt able to ambulate on own steadily and comfortable with plan for discharge. Departure - Departure Disposition: Home, Self Care Clinical Impression: Head injury Qualifiers: Encounter type: initial encounter Qualified Code(s): S09.90XA - Unspecified injury of head, initial encounter Skin tear of left upper arm without complication Qualifiers: Encounter type: initial encounter Qualified Code(s): S41.112A - Laceration without foreign body of left upper arm, initial encounter Condition: Stable Instructions: ED Head Injury Closed, ED Laceration Ext Sutr Stap Tape Comments: You were evaluated after a fall. Your head CT does not show any internal bleeding and an x-ray of your left arm also does not show a fracture. You have multiple skin tears to your left arm which were closed with Steri-Strips. These are special pieces of tape that will come off on their own over the next week.Please make sure to take it easy around her home especially with ambulating. If you have any concerns regarding her living situation or needing additional assistance at home please follow-up with your primary care doctor. Please return to the emergency department if you have any new symptoms or pains. Discharge Date/Time: 11/14/21 12:58
== END 2021-11-14 12:58 | disposition home or self-care (01) ==
LOC: EDUNIT# → ED 08:56
DX: S09.90XA Unspecified injury of head, initial encounter (principal); S41.112A Laceration without foreign body of left upper arm, initial encounter; W19.XXXA Unspecified fall, initial encounter; I10 Essential (primary) hypertension; I48.91 Unspecified atrial fibrillation; E11.42 Type 2 diabetes mellitus with diabetic polyneuropathy
CPT/HCPCS: 36415; 80053; 85025; 85610; 99283; 99284

== ENCOUNTER 2021-11-29 12:27 | Outpatient (CLI) | payer MEDICARE | END 2021-11-29 23:59 | disposition left against medical advice (07) | LOC: EMS 12:27 | DX: S60.811A Abrasion of right wrist, initial encounter (principal); W01.0XXA Fall on same level from slipping, tripping and stumbling without subsequent striking against object, initial encounter; Y92.002 Bathroom of unspecified non-institutional (private) residence as the place of occurrence of the external cause; Z79.01 Long term (current) use of anticoagulants ==

== ENCOUNTER 2021-12-15 18:14 | Outpatient (CLI) | payer MEDICARE | END 2021-12-15 18:15 | disposition EMS.NT | LOC: EMS 18:14 | DX: Z03.89 Encounter for observation for other suspected diseases and conditions ruled out (principal) ==

== ENCOUNTER 2021-12-18 03:56 | Outpatient (CLI) | payer MEDICARE | END 2021-12-18 03:57 | disposition EMS.NT | LOC: EMS 03:56 | DX: Z03.89 Encounter for observation for other suspected diseases and conditions ruled out (principal) ==

== ENCOUNTER 2021-12-19 03:06 | Outpatient (CLI) | payer MEDICARE | END 2021-12-19 03:07 | disposition EMS.NT | LOC: EMS 03:06 | DX: Z03.89 Encounter for observation for other suspected diseases and conditions ruled out (principal) ==

== ENCOUNTER 2021-12-20 04:58 | Emergency (ER) | payer MEDICARE ==
[2021-12-20] MEDS ORDERED: SODIUM CHLORIDE 0.9% 1,000 ML IV STA (05:08)
[2021-12-20 05:21] LABS: BASOPHILS # (AUTO) 0.1 10^3/uL (0.0-0.1); BASOPHILS % (AUTO) 0.6 %; EOSINOPHILS # (AUTO) 0.2 10^3/uL (0.0-0.7); EOSINOPHILS % (AUTO) 1.8 %; HCT - HEMATOCRIT 48.3 % (42.0-52.0); HGB - HEMOGLOBIN 15.6 g/dL (14.0-18.0); LYMPHOCYTES # (AUTO) 1.1 10^3/uL (1.5-3.5); LYMPHOCYTES % (AUTO) 11.3 %; MEAN CORPUSCULAR HEMOGLOBIN 31.3 pg (27.0-31.0); MEAN CORPUSCULAR HGB CONC 32.3 g/dL (32.0-36.0); MONOCYTES # (AUTO) 0.8 10^3/uL (0.0-1.0); MONOCYTES % (AUTO) 7.8 %; NEUTROPHILS # (AUTO) 7.8 10^3/uL (1.5-6.6); NEUTROPHILS % (AUTO) 78.1 %; PLT - PLATELET COUNT 201 10^3/uL (130-450); RED BLOOD COUNT 4.98 10^6/uL (4.70-6.10); RED CELL DISTRIBUTION WIDTH 14.1 % (12.0-15.0); WHITE BLOOD COUNT 9.9 x10^3/uL (4.8-10.8)
--- NOTE | 2021-12-20 05:24 | ED Physician Documentation ---
History of Present Illness - Stated complaint Stated Complaint: FALL/L RIB/NECK PX - Chief complaint Chief Complaint: Trauma Hd/Nk - History obtained from History obtained from: Patient - Additonal information Additional information: The patient is brought in by EMS for chief complaint of fall while getting out of bed. The patient lives by himself at home and apparently was trying to get out of bed when he lost his balance and fell. The medics report that when they found him, he had fallen between the nightstand and the bed. The patient states he did hit his head but did not lose consciousness. He complains of some left rib and left hip pain, though the medics to report the patient was able to get up and bear weight on the left hip with their help. The patient denies any recent illnesses. The medics state they had been to his house every day for the past several days assisting him up from falls. The patient does have a caregiver that comes every day at 10:00 in the morning, but he is alone at night. Patient has looked into assisted living previously but has ultimately decided he prefers his independence. Patient denies any dysuria. No abdominal or chest pain other than the rib pain. No shortness of breath. No fevers or chills. No dysuria. No other complaints at this time. The patient does take Eliquis as he has a history of atrial fibrillation. Review of Systems Ten Systems: 10 systems reviewed and negative Constitutional: reports: Reviewed and negative Eyes: reports: Reviewed and negative Ears: reports: Reviewed and negative Nose: reports: Reviewed and negative Throat: reports: Reviewed and negative Cardiac: reports: Reviewed and negative Respiratory: reports: Reviewed and negative GI: reports: Reviewed and negative : reports: Reviewed and negative Skin: reports: Reviewed and negative Musculoskeletal: reports: Extremity pain, Joint pain Neurologic: reports: Head injury. denies: Headache, LOC Psychiatric: reports: Reviewed and negative Endocrine: reports: Reviewed and negative Immunocompromised: reports: Reviewed and negative PD PAST MEDICAL HISTORY - Past Medical History Past Medical History: Yes Cardiovascular: Congestive heart failure, Hypertension, High cholesterol, Peripheral Vascular Disease, [place], Atrial fibrillation, Murmur Respiratory: Asthma, COPD, Pneumonia Neuro: Dementia, CVA, Headaches, Tremors Endocrine/Autoimmune: Type 2 diabetes GI: GERD : Benign prostate hypertrophy, Nocturia HEENT: Chronic vision loss, Chronic sinusitis, Chronic hearing loss Psych: Depression Musculoskeletal: Osteoarthritis, Osteoporosis, Hemiplegia Derm: None - Past Surgical History Past Surgical History: Yes - Present Medications Home Medications: Ambulatory Orders Medication Instructions Recorded Confirmed Apixaban [Eliquis] 5 mg PO BID #60 tab 06/21/21 12/20/21 Atorvastatin Calcium 40 mg PO QPM #30 tab 06/21/21 12/20/21 Ferrous Sulfate 650 mg PO BID 06/21/21 12/20/21 Magnesium Oxide 400 mg PO DAILY 06/21/21 12/20/21 Metoprolol Succinate [Toprol Xl] 12.5 mg PO BID #30 tab 06/21/21 12/20/21 Senna [Senokot] 8.6 mg PO DAILY 06/21/21 12/20/21 Tamsulosin [Flomax] 0.4 mg PO DAILY #30 cap 06/21/21 12/20/21 buPROPion HCL [Bupropion HCl] 100 mg PO BID #60 tab 06/21/21 12/20/21 Gabapentin [Neurontin] 300 mg PO DAILY PM 12/20/21 12/20/21 - Allergies Allergies/Adverse Reactions: Allergies Allergy/AdvReac Type Severity Reaction Status Date / Time No Known Drug Allergies Allergy Verified 12/20/21 05:04 - Social History Does the pt smoke?: No Smoking Status: Never smoker Does the pt drink ETOH?: Yes Does the pt have substance abuse?: No - Immunizations Immunizations are current?: No Immunizations: TDAP >10years/unknown - POLST Patient has POLST: No POLST Status: DNR PD ED PE NORMAL - Vitals Vital signs reviewed: Yes - General General: No acute distress, Well developed/nourished, Other (The patient is alert and answers questions appropriately.) - HEENT HEENT: Atraumatic, PERRL, EOMI, Moist mucous membranes - Neck Neck: Supple, no meningeal sign - Cardiac Cardiac: RRR, No murmur, Strong equal pulses - Respiratory Respiratory: No respiratory distress, Clear bilaterally - Abdomen Abdomen: Soft, Non tender, Non distended - Derm Derm: Normal color, Warm and dry, No rash - Extremities Extremities: No deformity, No edema, Other (Mild tenderness to palpation of the left hip. There is no shortening or rotation of the left lower extremity. Left foot lateral dorsum is tender and edematous. Erythema noted.) - Neuro Neuro: Alert and oriented X 3 - Psych Psych: Normal mood, Normal affect Results - Vitals Vitals: Vital Signs - 24 hr 12/20/21 12/20/21 05:01 07:18 Temperature 36.7 C Heart Rate 98 87 Respiratory 18 Rate Blood Pressure 127/77 119/83 H O2 Saturation 100 100 Oxygen O2 Source Room air - Labs Labs: Laboratory Tests 12/20/21 12/20/21 12/20/21 05:15 05:15 06:18 WBC 9.9 RBC 4.98 Hgb 15.6 Hct 48.3 MCV 97.0 H MCH 31.3 H MCHC 32.3 RDW 14.1 Plt Count 201 MPV 11.0 Neut # (Auto) 7.8 H Lymph # (Auto) 1.1 L [place] # (Auto) 0.8 Eos # (Auto) 0.2 Baso # (Auto) 0.1 Absolute Nucleated RBC 0.00 Nucleated RBC % 0.0 Sodium 138 Potassium 3.9 Chloride 104 Carbon Dioxide 23 Anion Gap 11.0 BUN 23 H Creatinine 1.1 Estimated GFR (MDRD) 65 L Glucose 156 H Calcium 8.8 Total Bilirubin 1.9 H AST 17 ALT 11 Alkaline Phosphatase 70 Total Protein 6.5 L Albumin 3.9 Globulin 2.6 Albumin/Globulin Ratio 1.5 Lipase 36 Nasal Adenovirus (PCR) NOT DETECTED Nasal B. parapertussis DNA (PCR) NOT DETECTED Nasal Coronavir 229E PCR NOT DETECTED Nasal Coronavir HKU1 PCR NOT DETECTED Nasal Coronavir NL63 PCR NOT DETECTED Nasal Coronavir OC43 PCR NOT DETECTED Nasal Enterovir/Rhinovir PCR NOT DETECTED Nasal Influenza B PCR NOT DETECTED Nasal Influenza A PCR NOT DETECTED Nasal Parainfluen 1 PCR NOT DETECTED Nasal Parainfluen 2 PCR NOT DETECTED Nasal Parainfluen 3 PCR NOT DETECTED Nasal Parainfluen 4 PCR NOT DETECTED Nasal RSV (PCR) NOT DETECTED Nasal B.pertussis DNA PCR NOT DETECTED Nasal C.pneumoniae (PCR) NOT DETECTED Samuel Human Metapneumo PCR NOT DETECTED Nasal M.pneumoniae (PCR) NOT DETECTED Nasal SARS-CoV-2 (PCR) NOT DETECTED PD MEDICAL DECISION MAKING - ED course Complexity details: reviewed results, re-evaluated patient, considered differential, d/w patient ED course: The patient was worked up with labs, EKG, and CTs of the head, neck, and chest, as well as x-rays of the left hip and left foot. He was given a liter of 0.9 normal saline. The patient CTs were unremarkable. Left hip seem to be very painful despite the fact that the x-ray was read as negative, so a CT of the pelvis was performed. This still demonstrated no fracture of the left hip. Left foot x-ray interpretation is pending at this time. The patient was given 0.5 mg of Dilaudid to help with his discomfort. I have consulted social work to evaluate the patient's fitness to be at home. Patient signed out to Dr. Horn, pending this and final disposition.
[2021-12-20 05:33] LABS: ALBUMIN 3.9 g/dL (3.2-5.5); ALBUMIN/GLOBULIN RATIO 1.5 (1.0-2.2); BILIRUBIN,TOTAL 1.9 mg/dL (0.2-1.0); CALCIUM 8.8 mg/dL (8.5-10.3); CREATININE 1.1 mg/dL (0.6-1.2); POTASSIUM 3.9 mmol/L (3.5-5.0); TOTAL PROTEIN 6.5 g/dL (6.7-8.2)
[2021-12-20] MEDS ORDERED: HYDROmorphone 0.5 MG/0.5 ML SYRINGE IVP STA (06:03)
[2021-12-20 07:22] LABS: B. PARAPERTUSSIS- RESP PCR PAN NOT DETECTED; B. PERTUSSIS- RESP PCR PANEL NOT DETECTED; C. PNEUMONIAE- RESP PCR PANEL NOT DETECTED; CORONAVIRUS 229E-RESP PCR NOT DETECTED; CORONAVIRUS HKU1-RESP PCR NOT DETECTED; CORONAVIRUS NL63-RESP PCR NOT DETECTED; CORONAVIRUS OC43-RESP PCR NOT DETECTED; HUMAN METAPNEUMOVIRUS NOT DETECTED; INFLUENZA A- RESP PCR PANEL NOT DETECTED; INFLUENZA B - RESP PCR PANEL NOT DETECTED; M. PNEUMONIAE- RESP PCR PANEL NOT DETECTED; PARAINFLUENZA VIRUS 1 NOT DETECTED; PARAINFLUENZA VIRUS 2 NOT DETECTED; PARAINFLUENZA VIRUS 3 NOT DETECTED; PARAINFLUENZA VIRUS 4 NOT DETECTED; RHINOVIRUS/ENTEROVIRUS NOT DETECTED; RSV- RESP PCR PANEL NOT DETECTED; SARS-CoV-2 -RESP PCR PANEL NOT DETECTED
--- NOTE | 2021-12-20 08:01 | CT Report ---
PROCEDURE: HEAD WO INDICATIONS: head injury, eliquis TECHNIQUE: Noncontrast 4.5 mm thick angled axial sections acquired from the foramen magnum to the vertex. For r adiation dose reduction, the following was used: automated exposure control, adjustment of mA and/or kV according to patient size. COMPARISON: None. FINDINGS: Image quality: Excellent. The ventricular system and cortical sulci demonstrate atrophy, consistent for patient's stated age. There are areas of hypodensity in the periventricular and subcortical white matter. There is no acut e intra or extra-axial fluid collection. No acute hemorrhage, mass lesion or midline shift. Brainst em is unremarkable. Globes are symmetrical. Sinuses are aerated. Osseous structures are intact. IMPRESSION: 1. No acute intracranial process. 2. Mild atrophy and chronic microvascular ischemic changes. Reviewed by: Keiry Goodman MD on 12/20/2021 7:59 AM PDT Approved by: Keiry Goodman MD on 12/20/2021 7:59 AM PDT Station ID: [id number]
--- NOTE | 2021-12-20 08:05 | CT Report ---
PROCEDURE: CERVICAL SPINE WO INDICATIONS: fall/head injury TECHNIQUE: Noncontrast 3 mm thick sections acquired from the skull base to the T4 level. Sagittal and coronal r eformats were then constructed. For radiation dose reduction, the following was used: automated exp osure control, adjustment of mA and/or kV according to patient size. COMPARISON: None. FINDINGS: Image quality: Excellent. Bones: No fractures or dislocations. Visualized superior ribs are intact. Multilevel degenerative changes Soft tissues: Prevertebral soft tissues are normal in thickness. No paravertebral hematomas. No ap ical pneumothoraces. IMPRESSION: Multilevel degenerative changes without visualized fracture. The above findings are concordant with preliminary report. Reviewed by: Keiry Goodman MD on 12/20/2021 8:04 AM PDT Approved by: Keiry Goodman MD on 12/20/2021 8:04 AM PDT Station ID: [id number]
--- NOTE | 2021-12-20 08:38 | XRAY Report ---
PROCEDURE: Foot 3 View LT INDICATIONS: pain/swelling/?injury TECHNIQUE: 3 views of the foot were acquired. COMPARISON: None FINDINGS: Bones: Ill-defined lucency, nondisplaced is present at the medial aspect of the cuboid bone. No suspi cious bony lesions. Prominent first MTP degenerative narrowing. Soft tissues: No tibiotalar joint effusion. Achilles tendon appears normal. IMPRESSION: Lucency and irregularity is present at the medial cuboid bone suspicious for fracture. Recommend brody elation point tenderness and follow-up imaging in 7-10 days. Reviewed by: Keiry Goodman MD on 12/20/2021 8:36 AM PDT Approved by: Keiry Goodman MD on 12/20/2021 8:36 AM PDT Station ID: [id number]
--- NOTE | 2021-12-20 08:38 | XRAY Report ---
PROCEDURE: Hip w/Pelvis 2-3V LT INDICATIONS: fall/pain TECHNIQUE: AP pelvis with lateral view(s) of the left hip(s). COMPARISON: None. FINDINGS: Bones: No fractures or dislocations. Pelvic ring appears intact. No suspicious bony lesions. Dege nerative changes are present within the hips bilaterally as well as lower lumbar spine. Soft tissues: The visualized bowel gas pattern is normal. No suspicious soft tissue calcifications. IMPRESSION: No visualized acute fracture or dislocation. However, occult injury cannot be excluded. Recommend short interval imaging follow-up in 7-10 days as clinically indicated for additional evalua tion. Reviewed by: Keiry Goodman MD on 12/20/2021 8:37 AM PDT Approved by: Keiry Goodman MD on 12/20/2021 8:37 AM PDT Station ID: [id number]
--- NOTE | 2021-12-20 08:51 | CT Report ---
PROCEDURE: CHEST WO INDICATIONS: fall/pain L ribs/can't stand TECHNIQUE: Noncontrast 1mm axial images were acquired from the pulmonary apices to the posterior costophrenic an gles. Axial 5 mm soft tissue kernel reconstructions were performed as well as 8 mm axial MIP and cor onal and sagittal 5 mm reformations. For radiation dose reduction, the following was used: automate d exposure control, adjustment of mA and/or kV according to patient size. COMPARISON: Chest x-ray 10/12/2021 FINDINGS: Image quality: Excellent. Lungs and pleura: Patchy scattered areas of groundglass opacity are present predominantly within the lower lobes. Bronchial wall thickening is also noted predominantly in the lower lobes. Calcified nodu le is present within the lung. Mediastinum: Heart size is enlarged. No pericardial effusion. No mediastinal adenopathy by size cri teria. Thoracic aorta and central pulmonary arteries are normal in size. Esophagus is normal in dimitri iber. No hiatal hernia. Bones and chest wall: No suspicious bony lesions. No vertebral body compression fractures. No axil selena or supraclavicular adenopathy by size criteria. No visualized rib fractures. The thyroid is nor mal in size and there are no incidental findings. Abdomen: Cholelithiasis without evidence of cholecystitis. Partially visualized colonic diverticular present. Calcification is noted within the spleen likely related to prior granulomatous exposure. Ot herwise, visualized upper abdominal solid organs and bowel loops appear normal in the absence of cont rast. IMPRESSION: Scattered groundglass opacities within the lungs suggestive of infection/inflammation. Diverticulosis. The above findings are concordant with preliminary report. CLINICAL RECOMMENDATION STATEMENTS: In patients <35 years with an ITN detected on CT, MRI, or extrathyroidal ultrasound, the Committee re commends further evaluation with dedicated thyroid ultrasound if the nodule is "e1 cm and has no susp icious imaging features, and if the patient has normal life expectancy. In patients "e35 years with an ITN detected on CT, MRI, or extrathyroidal ultrasound, the Committee r ecommends further evaluation with dedicated thyroid ultrasound if the nodule is "e1.5 cm and has no s uspicious imaging features, and if the patient has normal life expectancy. (ACR, 2014) Reviewed by: Keiry Goodman MD on 12/20/2021 8:50 AM PDT Approved by: Keiry Goodman MD on 12/20/2021 8:50 AM PDT Station ID: [id number]
[2021-12-20] MEDS ORDERED: KETOROLAC 15 MG/ML VIAL IVP STA (09:09)
[2021-12-20] MEDS ORDERED: ACETAMINOPHEN 325 MG TABLET PO STA (09:09)
--- NOTE | 2021-12-20 09:10 | CT Report ---
PROCEDURE: PELVIS WO INDICATIONS: L hip pain/injury TECHNIQUE: Noncontrast 3 mm axial sections acquired through the bony pelvis, with coronal and sagittal reformatt ing. For radiation dose reduction, the following was used: automated exposure control, adjustment of mA and/or kV according to patient size. COMPARISON: None. FINDINGS: Image quality: Excellent. Bones: Degenerative changes are present within the hips bilaterally. There is no visualized fracture or dislocation. No suspicious osseous lesions. Soft tissues: Bowel gas pattern is nonobstructive. Minimal scattered colonic diverticula are present . Fat-containing inguinal hernias are present. Soft tissue stranding is present within the subcutaneo us fat overlying the left hip. IMPRESSION: Degenerative changes without visualized fracture. Left hip soft tissue contusion. The above findings are concordant with preliminary report. Reviewed by: Keiry Goodman MD on 12/20/2021 9:09 AM PDT Approved by: Keiry Goodman MD on 12/20/2021 9:09 AM PDT Station ID: [id number]
--- NOTE | 2021-12-20 14:42 | ED Physician Documentation ---
ED Addendum - Addendum Addendum: 12/20/21 14:40 The patient was able to sit up. He was having some discomfort in the low back and pelvis area. His CT result did not show any fractures. I talking to him, he did express preference for seeing if he was able to get to her assisted living type setting. We waited and have social work talk with him. Social work Ila researched any availability in placement options. None were available at this time. She talked with his primary care office and we also get a physical therapy consult here to better establish his level function. To this point he is agreeable and wanting to go home at this point. He has a staff home therapy rn that comes in a few days a week there. This will be continued. They will look into increasing that support. There will also be a referral for assisted living placement and his primary care will work on that. Disposition: The patient discharged home in stable condition. Diagnoses: General weakness and balance problems 2. Fall from standing. 3. Right hip contusion
[2021-12-20 14:54] VITALS: BP 120/60
== END 2021-12-20 14:52 | disposition home or self-care (01) ==
LOC: EDUNIT# → ED 04:58
DX: S70.01XA Contusion of right hip, initial encounter (principal); W06.XXXA Fall from bed, initial encounter; Y92.003 Bedroom of unspecified non-institutional (private) residence as the place of occurrence of the external cause; Z91.81 History of falling; I48.91 Unspecified atrial fibrillation; Z79.01 Long term (current) use of anticoagulants; E11.9 Type 2 diabetes mellitus without complications; Z79.84 Long term (current) use of oral hypoglycemic drugs; Z20.822 Contact with and (suspected) exposure to COVID-19
CPT/HCPCS: 36415; 70450; 71250; 72125; 72192; 73502; 73630; 80053; 83690; 85025; 87633; 93005; 96374; 96375; 99284; A9270; J1170

== ENCOUNTER 2021-12-20 16:41 | Outpatient (CLI) | payer MEDICARE | END 2021-12-20 16:42 | disposition EMS.NT | LOC: EMS 16:41 | DX: Z03.89 Encounter for observation for other suspected diseases and conditions ruled out (principal) ==

== ENCOUNTER → 2021-12-20 | Outpatient (CLI) | payer MEDICARE | END | disposition critical access hospital (66) | LOC: EMS 04:40 | DX: M54.2 Cervicalgia (principal); R07.81 Pleurodynia; W06.XXXA Fall from bed, initial encounter; Y92.003 Bedroom of unspecified non-institutional (private) residence as the place of occurrence of the external cause | CPT/HCPCS: A0425; A0429 ==

== ENCOUNTER 2022-01-05 09:52 | Outpatient (CLI) | payer MEDICARE, MEDICAID | END 2022-01-05 23:59 | disposition EMS.NT | LOC: EMS 09:52 | DX: R07.81 Pleurodynia (principal); R05.9 Cough, unspecified ==

== ENCOUNTER 2022-01-10 01:07 | Outpatient (CLI) | payer MEDICARE, MEDICAID | END 2022-01-10 01:08 | disposition EMS.NT | LOC: EMS 01:07 | DX: Z03.89 Encounter for observation for other suspected diseases and conditions ruled out (principal) ==

== ENCOUNTER 2022-01-11 16:30 | Outpatient (CLI) | payer MEDICARE, MEDICAID | END 2022-01-11 16:31 | disposition EMS.NT | LOC: EMS 16:30 | DX: R53.1 Weakness (principal); Z74.8 Other problems related to care provider dependency ==

== ENCOUNTER 2022-01-15 08:12 | Outpatient (CLI) | payer MEDICARE, MEDICAID | END 2022-01-15 23:59 | disposition EMS.NT | LOC: EMS 08:12 | DX: R53.1 Weakness (principal) ==

== ENCOUNTER → 2022-01-20 | Outpatient (CLI) | payer MEDICARE, MEDICAID | END | disposition EMS.NT | LOC: EMS 11:01 | DX: S01.00XA Unspecified open wound of scalp, initial encounter (principal); W01.190A Fall on same level from slipping, tripping and stumbling with subsequent striking against furniture, initial encounter; Y92.003 Bedroom of unspecified non-institutional (private) residence as the place of occurrence of the external cause ==

== ENCOUNTER → 2022-01-21 | Outpatient (CLI) | payer MEDICARE, MEDICAID | END | disposition short-term general hospital (02) | LOC: EMS 12:58 | DX: R42 Dizziness and giddiness (principal); R53.1 Weakness; R51.9 Headache, unspecified; R26.81 Unsteadiness on feet | CPT/HCPCS: A0425; A0429; A0888 ==

== ENCOUNTER 2022-02-11 12:55 | Outpatient (CLI) | payer MEDICARE, MEDICAID | END 2022-02-11 12:56 | disposition critical access hospital (66) | LOC: EMS 12:55 | DX: M54.6 Pain in thoracic spine (principal); R29.6 Repeated falls; R53.1 Weakness; R53.81 Other malaise | CPT/HCPCS: A0425; A0429 ==

== ENCOUNTER 2022-02-11 13:15 | Emergency (ER) | payer MEDICARE, MEDICAID ==
[2022-02-11 13:22] VITALS: BP 152/87
--- NOTE | 2022-02-11 13:25 | ED Physician Documentation ---
PD HPI Fall - Stated complaint Stated Complaint: GLF/BACK PX - Chief complaint Chief Complaint: Trauma Ch/Bk - History obtained from History obtained from: Patient, EMS - History of Present Illness Mechanism of injury: Lost balance (he states he does have some balance problems, and uses walker. He was walking in house and fell backward, striking .umbar/thoracic area on his walker. pain in thoracolumbar spine area.) Fall distance: Standing position Where injury occurred: Home Timing - onset: How many hours ago (few), Today Injury(ies) location: Back, Left Uppper Extremity (forearm/elbow skin tears.). No: Head, Chest, Abdomen Quality of pain: Pain, Aching, Sharp Associated symptoms: No: LOC, AMS, Weakness, Paresthesias Contributing factors: Anticoagulated. No: Intoxicated Similar symptoms before: Has not had sx before (states he has had balance problems often.) Recently seen: No: Not recently seen Review of Systems Constitutional: denies: Fever, Chills Cardiac: denies: Chest pain / pressure Respiratory: reports: Dyspnea, Cough GI: denies: Abdominal Pain, Nausea, Vomiting, Diarrhea PD PAST MEDICAL HISTORY - Past Medical History Cardiovascular: Congestive heart failure, Hypertension, High cholesterol, Peripheral Vascular Disease, ND, Atrial fibrillation, Murmur Respiratory: Asthma, COPD, Pneumonia Neuro: Dementia, CVA, Headaches, Tremors Endocrine/Autoimmune: Type 2 diabetes GI: GERD : Benign prostate hypertrophy, Nocturia HEENT: Chronic vision loss, Chronic sinusitis, Chronic hearing loss Psych: Depression Musculoskeletal: Osteoarthritis, Osteoporosis, Hemiplegia Derm: None - Past Surgical History Past Surgical History: Yes - Present Medications Home Medications: Ambulatory Orders Medication Instructions Recorded Confirmed Apixaban [Eliquis] 5 mg PO BID #60 tab 06/21/21 12/20/21 Atorvastatin Calcium 40 mg PO QPM #30 tab 06/21/21 12/20/21 Ferrous Sulfate 650 mg PO BID 06/21/21 12/20/21 Magnesium Oxide 400 mg PO DAILY 06/21/21 12/20/21 Metoprolol Succinate [Toprol Xl] 12.5 mg PO BID #30 tab 06/21/21 12/20/21 Senna [Senokot] 8.6 mg PO DAILY 06/21/21 12/20/21 Tamsulosin [Flomax] 0.4 mg PO DAILY #30 cap 06/21/21 12/20/21 buPROPion HCL [Bupropion HCl] 100 mg PO BID #60 tab 06/21/21 12/20/21 Gabapentin [Neurontin] 300 mg PO DAILY PM 12/20/21 12/20/21 Albuterol Sulf [Ventolin Hfa 1 - 2 puffs INH Q4HR PRN #1 each 02/11/22 Inhaler] Amox/Clav 875/125 [Augmentin] 1 each PO Q12H #10 tablet 02/11/22 - Allergies Allergies/Adverse Reactions: Allergies Allergy/AdvReac Type Severity Reaction Status Date / Time No Known Drug Allergies Allergy Verified 12/20/21 05:04 - Social History Does the pt smoke?: No Smoking Status: Never smoker Does the pt drink ETOH?: Yes Does the pt have substance abuse?: No - Immunizations Immunizations are current?: No Immunizations: TDAP >10years/unknown - POLST Patient has POLST: No POLST Status: DNR PD ED PE NORMAL - Vitals Vital signs reviewed: Yes - General General: Alert and oriented X 3, No acute distress, Well developed/nourished - HEENT HEENT: Atraumatic - Neck Neck: Supple, no meningeal sign, No bony TTP (but some tender left paracervical area. ), No adenopathy - Cardiac Cardiac: RRR, No murmur - Respiratory Respiratory: Clear bilaterally - Abdomen Abdomen: Soft, Non tender - Back Back: No CVA TTP, Other (tender lower thoracic area with small rounded skin pressure pineda across in swatch c/w lying on some patterned object. he believes the tire of his walker. Lumbar area with some tenderness mid lumbar. ) - Derm Derm: Normal color, Warm and dry - Extremities Extremities: Other (left elbow and prox forearm ulnar side with small skin tears several each about 1-2 cm and just skin layer. ) - Neuro Neuro: Alert and oriented X 3, television picture tube rebuilder 2-12 intact, No motor deficit, No sensory deficit, Normal speech Eye Opening: Spontaneous Motor: Obeys Commands Verbal: Oriented GCS Score: 15 Results - Vitals Vitals: Vital Signs - 24 hr 02/11/22 13:18 Temperature 37.1 C Heart Rate 96 Respiratory 20 Rate Blood Pressure 152/87 H O2 Saturation 99 Oxygen O2 Source Room air - Labs Labs: Laboratory Tests 02/11/22 02/11/22 02/11/22 13:21 13:21 13:21 WBC 11.2 H RBC 5.84 Hgb 18.1 H Hct 55.0 H MCV 94.2 H MCH 31.0 MCHC 32.9 RDW 13.2 Plt Count 188 MPV 10.9 Neut # (Auto) 9.0 H Lymph # (Auto) 0.9 L Newton # (Auto) 0.8 Eos # (Auto) 0.3 Baso # (Auto) 0.1 Absolute Nucleated RBC 0.00 Nucleated RBC % 0.0 PT 12.0 INR 1.1 Sodium 137 Potassium 3.7 Chloride 104 Carbon Dioxide 26 Anion Gap 7.0 BUN 21 H Creatinine 1.4 H Estimated GFR (MDRD) 49 L Glucose 148 H Calcium 8.9 Total Bilirubin 2.1 H AST 23 ALT 16 Alkaline Phosphatase 78 Total Protein 6.9 Albumin 3.9 Globulin 3.0 Albumin/Globulin Ratio 1.3 Lipase 33 - Rads (name of study) head cT Radiology: Prelim report reviewed (no ICH nor acute findings. ), See rad report spine cT Radiology: Prelim report reviewed (arthritic changes. No fractures. ), See rad report PD Medical Decision Making - ED course Complexity details: considered differential (fall from losing balance. On anticoag. got cT head'spine. No acute fractures. Labs are okay. ), d/w patient Departure - Departure Disposition: 01 Home, Self Care Clinical Impression: Fall from slip, trip, or stumble, Back contusion, Pneumonia, Skin tear of left forearm without complication Condition: Stable Record reviewed to determine appropriate education?: Yes Prescriptions: Albuterol Sulf [Ventolin Hfa Inhaler] 1 - 2 puffs INH Q4HR PRN #1 each PRN Reason: Shortness Of Air/Wheezing Amox/Clav 875/125 [Augmentin] 1 each PO Q12H #10 tablet Comments: Your CT scans did not show any signs of bleeding fractures or acute deformity. You obviously have some injury to the soft tissue on your back from the fall. This will be sore presumably for several days to week or so. Tylenol every 4-6 hours if needed for pains. Continue your other usual medicines. The CT scan of the upper back did incidentally show what appeared to be developing pneumonia or small infiltrate in the lower lung. Combined with your recent cough, we would want to treat this as a potential bacterial infection with Augmentin twice daily for 5 days. You can also help your cough and breathing with an albuterol inhaler 2 to 3 puffs 4 times daily for the next several days to week. Continue your other usual medicines. Stay well-hydrated. Return if not improving well over the next several days or worse I sent your prescriptions to your preferred pharmacy. For your skin tears on the arm, they do not need sutures. I would cleanse them gently with soap and water once or twice daily and apply ointment and nonstick dressing to them. You can wrap with a covering. I would anticipate these healing without problems but recheck of infection. Discharge Date/Time: 02/11/22 17:23
[2022-02-11 13:44] LABS: BASOPHILS # (AUTO) 0.1 10^3/uL (0.0-0.1); BASOPHILS % (AUTO) 0.7 %; EOSINOPHILS # (AUTO) 0.3 10^3/uL (0.0-0.7); EOSINOPHILS % (AUTO) 2.6 %; HGB - HEMOGLOBIN 18.1 g/dL (14.0-18.0); LYMPHOCYTES # (AUTO) 0.9 10^3/uL (1.5-3.5); LYMPHOCYTES % (AUTO) 8.2 %; MEAN CORPUSCULAR HGB CONC 32.9 g/dL (32.0-36.0); MEAN CORPUSCULAR VOLUME 94.2 fL (80.0-94.0); MEAN PLATELET VOLUME 10.9 fL (7.4-11.4); MONOCYTES # (AUTO) 0.8 10^3/uL (0.0-1.0); MONOCYTES % (AUTO) 7.5 %; NEUTROPHILS % (AUTO) 80.7 %; PLT - PLATELET COUNT 188 10^3/uL (130-450); RED BLOOD COUNT 5.84 10^6/uL (4.70-6.10); RED CELL DISTRIBUTION WIDTH 13.2 % (12.0-15.0); WHITE BLOOD COUNT 11.2 x10^3/uL (4.8-10.8)
[2022-02-11 13:51] LABS: INR 1.1 (0.8-1.2)
[2022-02-11 13:57] LABS: ALBUMIN 3.9 g/dL (3.2-5.5); ALBUMIN/GLOBULIN RATIO 1.3 (1.0-2.2); BILIRUBIN,TOTAL 2.1 mg/dL (0.2-1.0); CALCIUM 8.9 mg/dL (8.5-10.3); CREATININE 1.4 mg/dL (0.6-1.2); POTASSIUM 3.7 mmol/L (3.5-5.0); TOTAL PROTEIN 6.9 g/dL (6.7-8.2)
--- NOTE | 2022-02-11 14:21 | CT Report ---
PROCEDURE: HEAD WO INDICATIONS: fall backward: neck/back pain, on DOAC. TECHNIQUE: Noncontrast 4.5 mm thick angled axial sections acquired from the foramen magnum to the vertex. For r adiation dose reduction, the following was used: automated exposure control, adjustment of mA and/or kV according to patient size. COMPARISON: Prior head CT examinations 01/19/2022, 11/14/2021, 10/12/2021. Correlation is made with the accompanying CT examinations, 02/11/2022. FINDINGS: Image quality: Excellent. CSF spaces: Basal cisterns are patent. No extra-axial fluid collections. Ventricles are normal in size and shape. Brain: No midline shift. No intracranial masses or hemorrhage. Covarrubias-white matter interface is norm al. Age-appropriate brain parenchymal volume loss and chronic small vessel ischemic change can be se en. Remote lacunar infarctions can be seen involving the basal ganglia on both sides. An apparent la cunar infarctions are also seen involving the teddy. Skull and face: Calvarium and visualized facial bones are intact, without suspicious lesions. Sinuses: Visualized sinuses and mastoids are clear. IMPRESSION: No intracranial hemorrhage is seen. No significant intracranial abnormality is seen. Remote lacunar infarctions are again seen. Reviewed by: Ernie Bills MD on 02/11/2022 1:20 PM [facility] Approved by: Ernie Bills MD on 02/11/2022 1:20 PM [facility] Station ID: [id number]
--- NOTE | 2022-02-11 14:24 | CT Report ---
PROCEDURE: CERVICAL SPINE WO INDICATIONS: fall backward, back/neck pain TECHNIQUE: Noncontrast 3 mm thick sections acquired from the skull base to the T4 level. Sagittal and coronal r eformats were then constructed. For radiation dose reduction, the following was used: automated exp osure control, adjustment of mA and/or kV according to patient size. COMPARISON: Prior cervical spine CT, 12/20/2021 10/12/2021, 03/02/2018. Correlation is made with the companying CT examinations, 02/11/2022. FINDINGS: Image quality: Excellent. Bones: No fractures or dislocations. Visualized superior ribs are intact. Moderate to prominent multilevel degenerative changes are seen. Soft tissues: Prevertebral soft tissues are normal in thickness. No paravertebral hematomas. No ap ical pneumothoraces. There is partial visualization of right lower lobe infiltrate, as on series 6 i mage 83. IMPRESSION: Negative for acute fracture. Extensive multilevel degenerative changes are again seen. Right lower lobe infiltrate partially seen. Reviewed by: Ernie Bills MD on 02/11/2022 1:23 PM [facility] Approved by: Ernie Bills MD on 02/11/2022 1:23 PM [facility] Station ID: [id number]
--- NOTE | 2022-02-11 14:26 | CT Report ---
PROCEDURE: THORACIC SPINE WO INDICATIONS: fall backward: neck/back pain TECHNIQUE: Noncontrast 3 mm thick sections acquired through the region of interest in the thoracic spine. Sagit tea and coronal reformats were then constructed. For radiation dose reduction, the following was used : automated exposure control, adjustment of mA and/or kV according to patient size. COMPARISON: 08/04/2016. Correlation is made with the accompanying CT examinations, 02/11/2022. FINDINGS: Image quality: Excellent. Bones: There is normal overall bony alignment. No acute vertebral body compression fractures. No s uspicious sclerotic or lytic bony lesions. Central spinal canal is of normal overall caliber. Gener alized degenerative thoracic spine changes are seen. Soft tissues: No paravertebral masses or hematomas. Visualized posteromedial lungs appear clear. B ilateral infiltrates are seen, which are worst involving the right lower lobe. Relatively prominent c oronary artery calcification can be seen. A percutaneously placed aortic valve prosthesis can be seen . Colonic diverticulosis is seen, without findings of active diverticulitis. IMPRESSION: Negative for acute fracture. Bilateral pulmonary infiltrates are seen, which are worst involving the right lower lobe. Postoperative and degenerative changes are seen. Reviewed by: Ernie Bills MD on 02/11/2022 1:24 PM [facility] Approved by: Ernie Bills MD on 02/11/2022 1:24 PM [facility] Station ID: [id number]
--- NOTE | 2022-02-11 14:28 | CT Report ---
PROCEDURE: LUMBAR SPINE WO INDICATIONS: fall backward: neck/back pain TECHNIQUE: Noncontrast 3 mm thick sections acquired from the T12 level to the sacrum. Sagittal and coronal refo rmats were constructed. For radiation dose reduction, the following was used: automated exposure co ntrol, adjustment of mA and/or kV according to patient size. COMPARISON: Correlation is made with the accompanying CT examinations, 02/11/2022. FINDINGS: Image quality: Excellent. Bones: No acute vertebral body compression fractures. No suspicious lytic or blastic bony lesions. Central spinal caliber is of normal overall caliber. No pars defects. Mild dextroconvex scoliotic curvature is seen. No significant AP alignment abnormality can be seen. At L4-L5, the disc height is relatively well preserved. Mild to moderate disc bulge is seen. Moderat e facet hypertrophy is seen. There is moderate right-sided and mild to moderate left-sided neurofora madhu narrowing. Mild central canal narrowing is seen. At L5-S1, there is moderate loss of disc height seen. Moderate disc bulge is seen at this level. Mod erate facet hypertrophy is seen. No significant neural foraminal or central canal narrowing can be seen. Milder degenerative changes are seen elsewhere. Soft tissues: No retroperitoneal masses or hematomas. Visualized aorta is normal in caliber. Ather osclerotic calcification is seen. Diverticulosis can be seen, without tera findings of active divert iculitis. IMPRESSION: Negative for acute fracture. Degenerative changes are seen, which are worst inferiorly. Reviewed by: Ernie Bills MD on 02/11/2022 1:27 PM [facility] Approved by: Ernie Bills MD on 02/11/2022 1:27 PM [facility] Station ID: [id number]
[2022-02-11] MEDS ORDERED: AMOX/CLAV 875 MG/125 MG TABLET PO STA (14:48)
[2022-02-11] MEDS ORDERED: ACETAMINOPHEN 500 MG TABLET PO STA (14:48)
[2022-02-11] MEDS ORDERED: BACITRACIN ZINC OINT 1 PACKET TOP STA (15:20)
== END 2022-02-11 17:23 | disposition home or self-care (01) ==
LOC: EDBD → EDUNIT# → ED 13:15
DX: J18.9 Pneumonia, unspecified organism (principal); S51.012A Laceration without foreign body of left elbow, initial encounter; S51.812A Laceration without foreign body of left forearm, initial encounter; T14.8XXA Other injury of unspecified body region, initial encounter; W01.0XXA Fall on same level from slipping, tripping and stumbling without subsequent striking against object, initial encounter; Y92.009 Unspecified place in unspecified non-institutional (private) residence as the place of occurrence of the external cause; I11.0 Hypertensive heart disease with heart failure; I50.9 Heart failure, unspecified; E11.51 Type 2 diabetes mellitus with diabetic peripheral angiopathy without gangrene; J44.0 Chronic obstructive pulmonary disease with (acute) lower respiratory infection; Z87.01 Personal history of pneumonia (recurrent); J44.9 Chronic obstructive pulmonary disease, unspecified; Z79.01 Long term (current) use of anticoagulants
CPT/HCPCS: 36415; 70450; 72125; 72128; 72131; 80053; 83690; 85025; 85610; 99284; A9270

== ENCOUNTER 2022-02-12 10:48 | Outpatient (CLI) | payer MEDICARE, MEDICAID | END 2022-02-12 10:49 | disposition EMS.NT | LOC: EMS 10:48 | DX: M54.50 Low back pain, unspecified (principal) ==

== ENCOUNTER 2022-02-26 11:53 | Outpatient (CLI) | payer MEDICARE, MEDICAID | END 2022-02-26 11:54 | disposition EMS.NT | LOC: EMS 11:53 | DX: Z03.89 Encounter for observation for other suspected diseases and conditions ruled out (principal) ==

== ENCOUNTER 2022-03-13 09:44 | Outpatient (CLI) | payer MEDICARE, MEDICAID | END 2022-03-13 09:45 | disposition EMS.NT | LOC: EMS 09:44 | DX: Z03.89 Encounter for observation for other suspected diseases and conditions ruled out (principal) ==

== ENCOUNTER 2022-03-13 11:05 | Outpatient (CLI) | payer MEDICARE, MEDICAID | END 2022-03-13 11:06 | disposition EMS.NT | LOC: EMS 11:05 | DX: Z03.89 Encounter for observation for other suspected diseases and conditions ruled out (principal) ==

== ENCOUNTER 2022-03-25 11:26 | Outpatient (CLI) | payer MEDICARE, MEDICAID | END 2022-03-25 11:27 | disposition left against medical advice (07) | LOC: EMS 11:26 | DX: S51.812A Laceration without foreign body of left forearm, initial encounter (principal); W18.39XA Other fall on same level, initial encounter; Y92.009 Unspecified place in unspecified non-institutional (private) residence as the place of occurrence of the external cause; Z79.01 Long term (current) use of anticoagulants ==

== ENCOUNTER 2022-03-27 18:54 | Outpatient (CLI) | payer MEDICARE, MEDICAID | END 2022-03-27 18:55 | disposition EMS.NT | LOC: EMS 18:54 | DX: Z03.89 Encounter for observation for other suspected diseases and conditions ruled out (principal) ==

== ENCOUNTER 2022-03-30 21:21 | Outpatient (CLI) | payer MEDICARE, MEDICAID | END 2022-03-30 21:22 | disposition EMS.NT | LOC: EMS 21:21 | DX: Z03.89 Encounter for observation for other suspected diseases and conditions ruled out (principal) ==

== ENCOUNTER 2022-04-07 14:03 | Outpatient (CLI) | payer MEDICARE, MEDICAID | END 2022-04-07 14:04 | disposition short-term general hospital (02) | LOC: EMS 14:03 | DX: H53.19 Other subjective visual disturbances (principal) | CPT/HCPCS: A0425; A0429; A0888 ==

== ENCOUNTER 2022-04-11 18:31 | Outpatient (CLI) | payer MEDICARE, MEDICAID | END 2022-04-11 23:59 | disposition left against medical advice (07) | LOC: EMS 18:31 | DX: Z03.89 Encounter for observation for other suspected diseases and conditions ruled out (principal) ==

== ENCOUNTER 2022-05-19 04:42 | Outpatient (CLI) | payer MEDICARE, MEDICAID | END 2022-05-19 23:59 | disposition EMS.NT | LOC: EMS 04:42 | DX: R42 Dizziness and giddiness (principal) ==

== ENCOUNTER 2022-05-19 12:01 | Outpatient (CLI) | payer MEDICARE, MEDICAID | END 2022-05-19 23:59 | disposition critical access hospital (66) | LOC: EMS 12:01 | DX: R07.1 Chest pain on breathing (principal); I48.91 Unspecified atrial fibrillation | CPT/HCPCS: A0425; A0429 ==

== ENCOUNTER 2022-05-19 12:23 | Emergency (ER) | payer MEDICARE, MEDICAID ==
[2022-05-19 12:38] LABS: BASOPHILS # (AUTO) 0.1 10^3/uL (0.0-0.1); BASOPHILS % (AUTO) 0.7 %; EOSINOPHILS # (AUTO) 0.2 10^3/uL (0.0-0.7); EOSINOPHILS % (AUTO) 2.6 %; HCT - HEMATOCRIT 48.1 % (42.0-52.0); HGB - HEMOGLOBIN 16.4 g/dL (14.0-18.0); MEAN CORPUSCULAR HEMOGLOBIN 31.8 pg (27.0-31.0); MEAN CORPUSCULAR HGB CONC 34.1 g/dL (32.0-36.0); MEAN CORPUSCULAR VOLUME 93.4 fL (80.0-94.0); MEAN PLATELET VOLUME 10.9 fL (7.4-11.4); MONOCYTES # (AUTO) 0.9 10^3/uL (0.0-1.0); MONOCYTES % (AUTO) 10.1 %; NEUTROPHILS # (AUTO) 6.7 10^3/uL (1.5-6.6); NEUTROPHILS % (AUTO) 75.2 %; PLT - PLATELET COUNT 168 10^3/uL (130-450); RED BLOOD COUNT 5.15 10^6/uL (4.70-6.10); WHITE BLOOD COUNT 8.9 x10^3/uL (4.8-10.8)
--- NOTE | 2022-05-19 12:39 | ED Physician Documentation ---
PD HPI CHEST PAIN - Stated complaint Stated Complaint: CHEST PX - Chief complaint Chief Complaint: Cardiac - History obtained from History obtained from: Patient - Additional information Additional information: 77-year-old male with a past medical history of atrial fibrillation On Eliquis, CHF, hypertension, COPD, type 2 diabetes and prior [place], who presents after a fall. The patient apparently fell this morning, it was unwitnessed. EMS was called at that time the patient refused transport to the hospital. He is unsure how he fell or if there were any prodromal symptoms, he is unsure if he hit his head or sustain any other injuries. He notes like he needed to the hospital at that time but then was thinking about it while he was at home and he also noted that he had some left-sided chest pain that started yesterday evening and after he sat about this and his history of heart disease he decided to call EMS for transport to the hospital. Left-sided chest pain is mild, nonradiating reprod ucible over the left chest wall. He has no accompanying shortness of breath, heart palpitations, diaphoresis, weakness, abdominal pain nausea vomiting. EMS did give the patient 325 mg of chewable aspirin. He currently does not have the chest pain except with some palpation of his left chest wall. He denies falling onto the left chest wall however and had the pain prior to the fall. Patient lives alone but does have caregivers in the home during the day Sunday through Sunday, nobody on the weekends. He has had several falls in the past. Review of Systems Constitutional: reports: Reviewed and negative Eyes: reports: Reviewed and negative Ears: reports: Reviewed and negative Nose: reports: Reviewed and negative Throat: reports: Reviewed and negative Cardiac: reports: Chest pain / pressure. denies: Palpitations, Pedal edema, Calf pain Respiratory: reports: Reviewed and negative GI: reports: Reviewed and negative : reports: Reviewed and negative Skin: reports: Reviewed and negative Musculoskeletal: reports: Reviewed and negative Neurologic: reports: Other (Fall, unknown if head injury.) Psychiatric: reports: Reviewed and negative Endocrine: reports: Reviewed and negative PD PAST MEDICAL HISTORY - Past Medical History Past Medical History: Yes Cardiovascular: Congestive heart failure, Hypertension, High cholesterol, Pe ripheral Vascular Disease, [place], Atrial fibrillation, Murmur Respiratory: Asthma, COPD, Pneumonia Neuro: Dementia, CVA, Headaches, Tremors Endocrine/Autoimmune: Type 2 diabetes GI: GERD : Benign prostate hypertrophy, Nocturia HEENT: Chronic vision loss, Chronic sinusitis, Chronic hearing loss Psych: Depression Musculoskeletal: Osteoarthritis, Osteoporosis, Hemiplegia Derm: None - Past Surgical History Past Surgical History: Yes - Present Medications Home Medications: Ambulatory Orders Medication Instructions Recorded Confirmed Apixaban [Eliquis] 5 mg PO BID #60 tab 06/21/21 12/20/21 Atorvastatin Calcium 40 mg PO QPM #30 tab 06/21/21 12/20/21 Ferrous Sulfate 650 mg PO BID 06/21/21 12/20/21 Magnesium Oxide 400 mg PO DAILY 06/21/21 12/20/21 Metoprolol Succinate [Toprol Xl] 12.5 mg PO BID #30 tab 06/21/21 12/20/21 Senna [Senokot] 8.6 mg PO DAILY 06/21/21 12/20/21 Tamsulosin [Flomax] 0.4 mg PO DAILY #30 cap 06/21/21 12/20/21 buPROPion HCL [Bupropion HCl] 100 mg PO BID #60 tab 06/21/21 12/20/21 Gabapentin [Neurontin] 300 mg PO DAILY PM 12/20/21 12/20/21 Albuterol Sulf [Ventolin Hfa 1 - 2 puffs INH Q4HR PRN #1 each 02/11/22 Inhaler] Amox/Clav 875/125 [Augmentin] 1 each PO Q12H #10 tablet 02/11/22 - Allergies Allergies/Adverse Reactions: Allergies Allergy/AdvReac Type Severity Reaction Status Date / Time No Known Drug Allergies Allergy Verified 12/20/21 05:04 - Social History Does the pt smoke?: No Smoking Status: Never smoker Does the pt drink ETOH?: Yes Does the pt have substance abuse?: No - Immunizations Immunizations are current?: No Immunizations: TDAP >10years/unknown - POLST Patient has POLST: No POLST Status: DNR PD ED PE NORMAL - Vitals Vital signs reviewed: Yes - General General: Alert and oriented X 3, No acute distress, Well developed/nourished (Appears chronically ill but in no acute distress) - HEENT HEENT: Atraumatic, PERRL, EOMI, Ears normal, Moist mucous membranes, Pharynx benign - Neck Neck: Supple, no meningeal sign, No JVD - Cardiac Cardiac: RRR, No murmur, No gallop, No rub, Strong equal pulses - Respiratory Respiratory: No respiratory distress, Clear bilaterally - Abdomen Abdomen: Normal bowel sounds, Soft, Non tender, Non distended - Derm Derm: Normal color, Warm and dry, Other (Numerous old bruises and abrasions on arms and multiple papules on the chest that have been excoriated and scratched.) - Extremities Extremities: No deformity, No tenderness to palpate, Normal ROM s pain, No edema - Neuro Neuro: Alert and oriented X 3, No motor deficit, No sensory deficit, Other (Speech is slow, sometimes forgetful.) Eye Opening: Spontaneous Motor: Obeys Commands Verbal: Oriented GCS Score: 15 - Psych Psych: Normal mood, Normal affect Results - Vitals Vitals: Vital Signs - 24 hr 05/19/22 05/19/22 05/19/22 12:22 13:34 14:05 Temperature 36.8 C Heart Rate 89 89 85 Respiratory 18 21 16 Rate Blood Pressure 115/85 H 116/70 117/75 O2 Saturation 98 96 97 Oxygen O2 Source Room air - EKG (time done) No standard instances EKG releavant findings:: EKG personally interpreted by author of this note. Relevant findings are: Rate: Rate (enter#) (96) Rhythm: Atrial fibrillation QRS: Normal Ischemia: Q waves Computer interpretation: Agree with computer - Labs Labs: Laboratory Tests 05/19/22 05/19/22 05/19/22 12:29 12:29 12:29 WBC 8.9 RBC 5.15 Hgb 16.4 Hct 48.1 MCV 93.4 MCH 31.8 H MCHC 34.1 RDW 14.0 Plt Count 168 MPV 10.9 Neut # (Auto) 6.7 H Lymph # (Auto) 1.0 L [place] # (Auto) 0.9 Eos # (Auto) 0.2 Baso # (Auto) 0.1 Absolute Nucleated RBC 0.00 Nucleated RBC % 0.0 PT 17.4 H INR 1.6 H Sodium 138 Potassium 4.3 Chloride 106 Carbon Dioxide 24 Anion Gap 8.0 BUN 27 H Creatinine 1.2 Estimated GFR (MDRD) 59 L Glucose 150 H Calcium 8.8 Total Bilirubin 1.3 H AST 20 ALT 15 Alkaline Phosphatase 50 Troponin I High Sens Total Protein 6.0 L Albumin 3.4 Globulin 2.6 Albumin/Globulin Ratio 1.3 Lipase 37 05/19/22 12:29 WBC RBC Hgb Hct MCV MCH MCHC RDW Plt Count MPV Neut # (Auto) Lymph # (Auto) [place] # (Auto) Eos # (Auto) Baso # (Auto) Absolute Nucleated RBC Nucleated RBC % PT INR Sodium Potassium Chloride Carbon Dioxide Anion Gap BUN Creatinine Estimated GFR (MDRD) Glucose Calcium Total Bilirubin AST ALT Alkaline Phosphatase Troponin I High Sens 8.6 Total Protein Albumin Globulin Albumin/Globulin Ratio Lipase - Rads (name of study) No standard instances Relevant Findings:: Final report received PD Medical Decision Making - ED course Complexity details: reviewed results, re-evaluated patient, considered differential, d/w patient, d/w family ED course: 77-year-old male with past medical history as listed above presented with chest pain as well as a reported fall at home. Fall was unwitnessed, patient was not sure if he hit his head. His physical exam is reassuring, no signs of acute injury, no head contusions or abrasions, no extremity injuries. I did obtain a head CT given the patient is on anticoagulation and did fall, but there was no acute findings. He was also complaining of left chest pain. The chest pain is reproducible with palpation of the chest wall but he did not recall hitting it on the fall and believes that the pain started actually yesterday. His symptoms are consistent with a chest wall strain or contusion however I did want to rule out ACS and other causes of chest pain such as pneumothorax Or pneumonia. I have low suspicion for PE as patient is already on anticoagulation. We obtained an EKG which shows no acute findings, his troponin is negative and chest x-ray and rib series also negative. Patient was reassured by these findings as well as his other labs which I reviewed with him and also stable. I do believe he is stable for discharge home at this time. The patient has had a history of recurrent falls and was cautioned on safe movement techniques as well as utilizing walker. He does have caregiving services during a week which she will continue to utilize. I discussed return precautions if new or worsening symptoms. Departure - Departure Disposition: Home, Self Care Clinical Impression: Chest wall pain Atrial fibrillation Qualifiers: Atrial fibrillation type: longstanding persistent Qualified Code(s): I48.11 - Longstanding persistent atrial fibrillation Condition: Good Instructions: ED Afib, ED Contusion Chest Wall Comments: You presented after a fall at home this morning. We did a CT of your head and chest x-ray as well as a rib x-ray which were all stable. The x-rays cannot always see small rib fractures but given your physical exam, I think a rib fracture is unlikely. The pain in your chest is reproducible with palpation and this often indicates a chest wall strain or contusion. You can take Tylenol for this, utilize a heating pad or cool compress if comfortable. We did evaluate your heart, you are in atrial fibrillation which is chronic for you and your rate is well controlled. Your other labs are stable today. Please be sure to use your walker and move carefully in the house to avoid dizziness or falls. Discharge Date/Time: 05/19/22 14:07
[2022-05-19 12:56] LABS: ALBUMIN 3.4 g/dL (3.2-5.5); ALBUMIN/GLOBULIN RATIO 1.3 (1.0-2.2); BILIRUBIN,TOTAL 1.3 mg/dL (0.2-1.0); CALCIUM 8.8 mg/dL (8.5-10.3); CREATININE 1.2 mg/dL (0.6-1.2); POTASSIUM 4.3 mmol/L (3.5-5.0)
[2022-05-19 13:06] LABS: INR 1.6 (0.8-1.2); PT - PROTHROMBIN TIME 17.4 secs (9.9-12.6)
--- NOTE | 2022-05-19 13:09 | XRAY Report ---
PROCEDURE: Ribs w/PA Chest LT INDICATIONS: left rib pain after fall TECHNIQUE: 3 views of the left ribs were acquired, along with a single view chest. COMPARISON: CT thoracic spine 02/11/2022 FINDINGS: Surgical changes and devices: None. Bones and chest wall: No fractures or dislocations. No suspicious bony lesions. Overlying soft tis sues appear unremarkable. Lungs and pleura: No pleural effusions or pneumothorax. Lungs appear clear. Mediastinum: Mediastinal contours appear normal. Heart size is normal. IMPRESSION: No visualized acute fracture or dislocation. However, occult injury cannot be excluded. Recommend marissa rt interval imaging follow-up in 7-10 days as clinically indicated for additional evaluation. Reviewed by: Keiry Goodman MD on 05/19/2022 1:08 PM PDT Approved by: Keiry Goodman MD on 05/19/2022 1:08 PM PDT Station ID: [id number]
--- NOTE | 2022-05-19 13:27 | CT Report ---
PROCEDURE: HEAD WO INDICATIONS: fall, on eliquis TECHNIQUE: Noncontrast 4.5 mm thick angled axial sections acquired from the foramen magnum to the vertex. For r adiation dose reduction, the following was used: automated exposure control, adjustment of mA and/or kV according to patient size. COMPARISON: CT brain 02/11/2022 FINDINGS: Image quality: Excellent. The ventricular system and cortical sulci demonstrate atrophy, consistent for patient's stated age. There are areas of hypodensity in the periventricular and subcortical white matter. There is no acut e intra or extra-axial fluid collection. No acute hemorrhage, mass lesion or midline shift. Brainst em is unremarkable. Globes are symmetrical. Sinuses are aerated. Osseous structures are intact. IMPRESSION: 1. No acute intracranial process. 2. Moderate atrophy and chronic microvascular ischemic changes. Reviewed by: Keiry Goodman MD on 05/19/2022 1:26 PM PDT Approved by: Keiry Goodman MD on 05/19/2022 1:26 PM PDT Station ID: [id number]
[2022-05-19 14:05] VITALS: BP 117/75
== END 2022-05-19 14:07 | disposition home or self-care (01) ==
LOC: EDUNIT# → ED 12:23
DX: I48.11 Longstanding persistent atrial fibrillation (principal); R07.89 Other chest pain; I10 Essential (primary) hypertension; I48.91 Unspecified atrial fibrillation; Z79.01 Long term (current) use of anticoagulants; E11.9 Type 2 diabetes mellitus without complications; I25.2 Old myocardial infarction
CPT/HCPCS: 36415; 80053; 83690; 84484; 85025; 85610; 93005; 99283; 99284

== ENCOUNTER 2022-05-29 01:07 | Outpatient (CLI) | payer MEDICARE, MEDICAID | END 2022-05-29 01:08 | disposition EMS.NT | LOC: EMS 01:07 | DX: Z03.89 Encounter for observation for other suspected diseases and conditions ruled out (principal) ==

== ENCOUNTER 2022-05-31 11:15 | Outpatient (CLI) | payer MEDICARE, MEDICAID | END 2022-05-31 11:16 | disposition short-term general hospital (02) | LOC: EMS 11:15 | DX: M25.552 Pain in left hip (principal) | CPT/HCPCS: A0425; A0427; A0888 ==